=== PATIENT | female | born 1965 | race African-American/Black ===

== ENCOUNTER 2020-04-28 11:14 | Emergency (ER) | payer SELFPAY ==
[~2020-04-28] VITALS: Ht 172.7 cm; Wt 153.2 kg
[2020-04-28] MEDS ORDERED: IBUPROFEN 600MG TABLET PO STA (12:42)
[2020-04-28] MEDS ORDERED: AMLODIPINE 5MG TABLET PO ONE (12:45)
[2020-04-28 13:53] LABS: BASOPHILS % 0.9 % (0.0-2.0); EOSINOPHILS % 2.4 % (0.0-5.0); HEMATOCRIT. 43.3 % (36.0-48.0); LYMPHOCYTES % 23.5 % (20.0-50.0); MEAN CORPUSCULAR HEMOGLOBIN 25.4 pg (28.0-32.0); MEAN CORPUSCULAR VOLUME 78.8 fL (81.0-99.0); MEAN PLATELET VOLUME 9.3 fl (7.4-10.4); MONOCYTES % 4.9 % (2.0-8.0); NEUTROPHILS % 68.3 % (40.0-76.0); PLATELET 271 x1000/uL (130-400); RED BLOOD CELL COUNT 5.49 mill/uL (4.2-5.4); RED CELL DISTRIBUTION WIDTH 15.3 % (11.6-14.6)
[2020-04-28 13:58] LABS: CHLORIDE 101 mEq/L (98-107)
[2020-04-28 15:15] VITALS: BP 170/80
== END 2020-04-28 15:17 | disposition home or self-care (01) ==
LOC: ER 11:14
DX: I16.0 Hypertensive urgency (principal); E11.65 Type 2 diabetes mellitus with hyperglycemia; M25.512 Pain in left shoulder; M79.661 Pain in right lower leg; Z86.718 Personal history of other venous thrombosis and embolism; Z88.0 Allergy status to penicillin; Z98.890 Other specified postprocedural states
CPT/HCPCS: 36415; 71045; 73030; 80053; 85025; 93005; 93971; 99285

== ENCOUNTER 2023-03-30 22:50 | Inpatient (IN) | payer SELFPAY ==
[~2023-03-30] VITALS: Ht 170.2 cm; Wt 161.1 kg
[2023-03-30 23:34] LABS: BASOPHILS % 0.4 % (0.0-2.0); DIFFERENTIAL COMMENT 0; EOSINOPHILS % 3.3 % (0.0-5.0); HEMATOCRIT. 28.6 % (36.0-48.0); HEMOGLOBIN. 9.1 g/dL (12.0-16.0); LYMPHOCYTES % 30.5 % (20.0-50.0); MEAN CORPUSCULAR HEMOGLOBIN 23.2 pg (28.0-32.0); MEAN CORPUSCULAR HGB CONC 31.7 g/dL (31.0-37.0); MEAN CORPUSCULAR VOLUME 73.1 fL (81.0-99.0); MEAN PLATELET VOLUME 8.3 fl (7.4-10.4); MONOCYTES % 5.9 % (2.0-8.0); NEUTROPHILS % 59.9 % (40.0-76.0); PLATELET 438 x1000/uL (130-400); RED BLOOD CELL COUNT 3.91 mill/uL (4.2-5.4); RED CELL DISTRIBUTION WIDTH 17.6 % (11.6-14.6); WHITE BLOOD COUNT 10.7 x1000/uL (4.5-11.0)
[2023-03-30 23:38] LABS: INR 0.9; PARTIAL THROMBOPLASTIN TIME 29.8 sec (23.4-31.0)
[2023-03-30 23:49] LABS: ALANINE AMINOTRANSFERASE < 7 IU/L (10-49); ALBUMIN 3.5 g/dL (3.2-4.8); ASPARTATE AMINOTRANSFERASE 9 IU/L (<34); BILIRUBIN TOTAL 0.2 mg/dL (0.1-1.0); CALCIUM 8.4 mg/dL (8.7-10.4); CARBON DIOXIDE 24 mEq/L (21-32); CHLORIDE 108 mEq/L (98-107); CREATININE 1.2 mg/dL (0.6-1.0); GLUCOSE 184 mg/dL (70-105); POTASSIUM 3.7 mEq/L (3.5-5.1); PROTEIN TOTAL 6.7 g/dL (6.0-8.3); SODIUM 140 mEq/L (136-145); TROPONIN I HIGH SENSITIVITY 5 ng/L (3.0-34); UREA NITROGEN BLOOD 17 mg/dL (9-23)
[2023-03-31] MEDS ORDERED: SODIUM CHLORIDE 0.9% 1,000 ML IV ONE (00:30)
[2023-03-31 02:07] LABS: CLARITY URINE CLOUDY (CLEAR); COLOR URINE YELLOW (YELLOW); SPECIFIC GRAVITY URINE 1.013 (1.005-1.030)
[2023-03-31 02:08] LABS: GLUCOSE URINE NEGATIVE (NEGATIVE); KETONES URINE NEGATIVE (NEGATIVE); LEUKOCYTE ESTERASE URINE NEGATIVE (NEGATIVE); NITRITE URINE NEGATIVE (NEGATIVE); OCCULT BLOOD URINE 2+ (NEGATIVE); PROTEIN URINE 3+ (NEGATIVE); UROBILINOGEN URINE 0.2 E.U./dL (0.2-1.0)
[2023-03-31 02:21] LABS: BACTERIA URINE 1+; RBC URINE 0-2 /hpf (0-2)
[2023-03-31 02:22] LABS: SQUAMOUS EPITHELIAL CELL URINE 1+ /lpf (RARE/1+)
[2023-03-31] MEDS ORDERED: ENOXAPARIN 80MG/0.8ML SYR SUBCUT ONE (05:30)
[2023-03-31] MEDS ORDERED: HYDRALAZINE 20MG/ML VIAL IV ONE (05:30)
[2023-03-31] MEDS ORDERED: IOHEXOL-350 100 ML BOTTLE ONE (07:02)
[2023-03-31 09:00] VITALS: BP 118/74; PULSE 92; RESP 18; TEMP 97.5
[2023-03-31 09:36] VITALS: BP 118/74; PULSE 92; RESP 18; TEMP 97.5
[2023-03-31 12:00] VITALS: BP 184/84; PULSE 95; RESP 18; TEMP 97.1
[2023-03-31] MEDS ORDERED: ONDANSETRON HCL 4MG/2ML INJ IV PRN (12:00)
[2023-03-31] MEDS ORDERED: ACETAMINOPHEN 325MG TABLET PO PRN (12:00)
[2023-03-31] MEDS ORDERED: DOCUSATE SODIUM 100MG CAPSULE PO PRN (12:00)
[2023-03-31] MEDS ORDERED: IPRATROPIUM/ALBUTEROL 0.5-3(2.5)MG/3ML NEB HHN PRN (12:00)
[2023-03-31] MEDS ORDERED: GUAIFENESIN 200MG/10ML SUGAR FREE UDC PO PRN (12:00)
[2023-03-31] MEDS: AMLODIPINE 10MG TABLET PO SCH (12:44)
[2023-03-31] MEDS: TRAMADOL 50MG TABLET PO PRN ×2 (14:43→21:18)
[2023-03-31 16:00] VITALS: BP 178/84; PULSE 96; RESP 18; TEMP 98.1
[2023-03-31 20:00] VITALS: BP 173/86; PULSE 102; RESP 17; TEMP 98.8
[2023-03-31] MEDS: CLONIDINE 0.1MG TABLET PO PRN (21:19)
[2023-04-01] VITALS: BP 157/77; PULSE 101; RESP 18; TEMP 99.9
[2023-04-01 04:00] VITALS: BP 147/72; PULSE 90; RESP 18; TEMP 99.8
[2023-04-01 04:13] VITALS: BP 147/72; RESP 18; TEMP 99.8
[2023-04-01 08:00] VITALS: BP 170/83; PULSE 84; RESP 20; TEMP 98
[2023-04-01 08:14] LABS: BASOPHILS % 0.4 % (0.0-2.0); DIFFERENTIAL COMMENT 0; EOSINOPHILS % 4.7 % (0.0-5.0); HEMATOCRIT. 26.7 % (36.0-48.0); HEMOGLOBIN. 8.5 g/dL (12.0-16.0); LYMPHOCYTES % 30.4 % (20.0-50.0); MEAN CORPUSCULAR HGB CONC 31.8 g/dL (31.0-37.0); MEAN CORPUSCULAR VOLUME 72.3 fL (81.0-99.0); MEAN PLATELET VOLUME 8.6 fl (7.4-10.4); MONOCYTES % 6.1 % (2.0-8.0); NEUTROPHILS % 58.4 % (40.0-76.0); PLATELET 372 x1000/uL (130-400); RED BLOOD CELL COUNT 3.69 mill/uL (4.2-5.4); RED CELL DISTRIBUTION WIDTH 17.6 % (11.6-14.6); WHITE BLOOD COUNT 9.4 x1000/uL (4.5-11.0)
[2023-04-01] MEDS ORDERED: ASPIRIN 81MG EC TABLET PO SCH (09:00)
[2023-04-01] MEDS: AMLODIPINE 10MG TABLET PO SCH (09:02)
[2023-04-01 09:27] LABS: ALANINE AMINOTRANSFERASE < 7 IU/L (10-49); ALBUMIN 3.3 g/dL (3.2-4.8); ASPARTATE AMINOTRANSFERASE 9 IU/L (<34); BILIRUBIN TOTAL < 0.2 mg/dL (0.1-1.0); CALCIUM 8.8 mg/dL (8.7-10.4); CARBON DIOXIDE 24 mEq/L (21-32); CHLORIDE 110 mEq/L (98-107); CHOLESTEROL 133 mg/dL (<200); CREATININE 1.1 mg/dL (0.6-1.0); GLUCOSE 183 mg/dL (70-105); HDL CHOLESTEROL 36 mg/dL (>65); LDL CHOLESTEROL 107 mg/dL (5-100); POTASSIUM 4.7 mEq/L (3.5-5.1); PROTEIN TOTAL 5.8 g/dL (6.0-8.3); SODIUM 142 mEq/L (136-145); TRIGLYCERIDE 114 mg/dL (0-150); UREA NITROGEN BLOOD 15 mg/dL (9-23)
[2023-04-01 09:52] VITALS: RESP 18
[2023-04-01] MEDS: TRAMADOL 50MG TABLET PO PRN (09:52)
[2023-04-01] MEDS ORDERED: FUROSEMIDE 20MG TABLET PO SCH (11:15)
[2023-04-01 12:27] VITALS: BP 170/83; PULSE 69; TEMP 97.3; O2SAT 96
[2023-04-01] MEDS: CLONIDINE 0.1MG TABLET PO PRN (12:57)
[2023-04-01] MEDS ORDERED: HYDRALAZINE HCL 10MG TABLET PO SCH (14:00)
[2023-04-01] MEDS ORDERED: ATORVASTATIN CALCIUM 10MG TABLET PO SCH (21:00)
== END 2023-04-01 15:12 | disposition home or self-care (01) | DRG 194 ==
LOC: ER 22:50 → 8WST 03-31 01:40 → EDBEDREQ 03-31 01:47
PROVIDERS: ADMIT Hospitalist; ATTEND Hospitalist
DX: I11.0 Hypertensive heart disease with heart failure (principal); E11.9 Type 2 diabetes mellitus without complications; I50.41 Acute combined systolic (congestive) and diastolic (congestive) heart failure; E78.5 Hyperlipidemia, unspecified; N84.2 Polyp of vagina; N93.9 Abnormal uterine and vaginal bleeding, unspecified; Z79.4 Long term (current) use of insulin
CPT/HCPCS: 36415; 71045; 71275; 80053; 80061; 81003; 82962; 83880; 84484; 85025; 85379; 93005; 93306; 93970; 99285; J0360; J1650; Q9967

== ENCOUNTER 2023-04-03 16:25 | Inpatient (IN) | payer SELFPAY ==
[~2023-04-03] VITALS: Ht 170.2 cm; Wt 155.6 kg
[2023-04-03] MEDS ORDERED: ACETAMINOPHEN 325MG TABLET PO STA (17:33)
[2023-04-03] MEDS ORDERED: KETOROLAC 30MG/ML VIAL IV ONE (17:45)
[2023-04-03 18:39] LABS: ALANINE AMINOTRANSFERASE 9 IU/L (10-49); ALBUMIN 3.9 g/dL (3.2-4.8); ASPARTATE AMINOTRANSFERASE 18 IU/L (<34); BILIRUBIN TOTAL 0.2 mg/dL (0.1-1.0); CALCIUM 9.5 mg/dL (8.7-10.4); CARBON DIOXIDE 26 mEq/L (21-32); CHLORIDE 103 mEq/L (98-107); GLUCOSE 226 mg/dL (70-105); POTASSIUM 4.6 mEq/L (3.5-5.1); SODIUM 138 mEq/L (136-145); TROPONIN I HIGH SENSITIVITY 6 ng/L (3.0-34); UREA NITROGEN BLOOD 15 mg/dL (9-23)
[2023-04-03 18:43] LABS: HEMATOCRIT. 33.1 % (36.0-48.0); MEAN CORPUSCULAR HEMOGLOBIN 22.2 pg (28.0-32.0); MEAN CORPUSCULAR HGB CONC 30.2 g/dL (31.0-37.0); MEAN CORPUSCULAR VOLUME 73.5 fL (81.0-99.0); MEAN PLATELET VOLUME 8.9 fl (7.4-10.4); PLATELET 396 x1000/uL (130-400); RED CELL DISTRIBUTION WIDTH 17.6 % (11.6-14.6); WHITE BLOOD COUNT 12.5 x1000/uL (4.5-11.0)
[2023-04-03 18:48] LABS: CREATININE 1.5 mg/dL (0.6-1.0)
[2023-04-03 18:55] LABS: DIFFERENTIAL COMMENT 1
[2023-04-03 19:05] LABS: CLARITY URINE CLOUDY (CLEAR); COLOR URINE YELLOW (YELLOW); GLUCOSE URINE TRACE (NEGATIVE); KETONES URINE NEGATIVE (NEGATIVE); LEUKOCYTE ESTERASE URINE TRACE (NEGATIVE); NITRITE URINE NEGATIVE (NEGATIVE); OCCULT BLOOD URINE 2+ (NEGATIVE); PH URINE 8.5 (4.5-8.0); PROTEIN URINE 3+ (NEGATIVE); SPECIFIC GRAVITY URINE 1.019 (1.005-1.030); UROBILINOGEN URINE 0.2 E.U./dL (0.2-1.0)
[2023-04-03 19:10] LABS: INR 0.9; PROTHROMBIN TIME 10.2 sec (9.6-11.0)
[2023-04-03] MEDS ORDERED: CEFTRIAXONE 1GM PREMIX 50 ML IV ONE (19:15)
[2023-04-03 19:49] LABS: BACTERIA URINE 2+; SQUAMOUS EPITHELIAL CELL URINE 2+ /lpf (RARE/1+); WBC URINE 0-2 /hpf (0-2)
[2023-04-03] MEDS ORDERED: AZITHROMYCIN 500 MG in DEXT 5% WATER 250 ML IV STA (20:28)
[2023-04-03] MEDS ORDERED: AZITHROMYCIN 500MG/250ML 250 ML IV NR (20:45)
[2023-04-03 21:30] LABS: PLATELET ESTIMATE NORMAL
[2023-04-03 21:31] LABS: ANISOCYTOSIS 1+; HYPOCHROMASIA 1+; MICROCYTOSIS 2+
[2023-04-04] MEDS ORDERED: SODIUM CHLORIDE 0.9% 1,000 ML IV SCH
[2023-04-04] MEDS ORDERED: MAGNESIUM/ALUMINUM HYDROXIDE/SIMETHICONE 30ML UDC PO PRN
[2023-04-04] MEDS ORDERED: ONDANSETRON HCL 4MG/2ML INJ IV PRN
[2023-04-04] MEDS ORDERED: ACETAMINOPHEN 325MG TABLET PO PRN
[2023-04-04] MEDS ORDERED: DOCUSATE SODIUM 100MG CAPSULE PO PRN
[2023-04-04] MEDS ORDERED: IPRATROPIUM/ALBUTEROL 0.5-3(2.5)MG/3ML NEB HHN PRN
[2023-04-04] MEDS ORDERED: LEVOFLOXACIN 500MG PREMIX 100 ML IV SCH (01:00)
[2023-04-04] MEDS: GUAIFENESIN 200MG/10ML SUGAR FREE UDC PO PRN ×2 (01:03→08:16)
[2023-04-04] MEDS: CLONIDINE 0.1MG TABLET PO PRN (01:30)
[2023-04-04] MEDS ORDERED: LEVOFLOXACIN 500MG PREMIX 100 ML IV NR (06:00)
[2023-04-04 07:57] LABS: HEMATOCRIT 31.4 % (36.0-48.0); HEMOGLOBIN 9.8 g/dL (12.0-16.0); MEAN CORPUSCULAR HEMOGLOBIN 22.3 pg (28.0-32.0); MEAN CORPUSCULAR HGB CONC 31.2 g/dL (31.0-37.0); MEAN CORPUSCULAR VOLUME 71.5 fL (81.0-99.0); PLATELET 344 x1000/uL (130-400); RED BLOOD CELL COUNT 4.39 mill/uL (4.2-5.4); RED CELL DISTRIBUTION WIDTH 17.4 % (11.6-14.6); WHITE BLOOD COUNT 9.4 x1000/uL (4.5-11.0)
[2023-04-04 08:14] LABS: ALANINE AMINOTRANSFERASE 9 IU/L (10-49); ALBUMIN 3.7 g/dL (3.2-4.8); ASPARTATE AMINOTRANSFERASE 19 IU/L (<34); BILIRUBIN TOTAL 0.2 mg/dL (0.1-1.0); CARBON DIOXIDE 28 mEq/L (21-32); CHLORIDE 105 mEq/L (98-107); CREATININE 1.4 mg/dL (0.6-1.0); GLUCOSE 142 mg/dL (70-105); IRON 26 ug/dL (50-170); POTASSIUM 4.4 mEq/L (3.5-5.1); PROTEIN TOTAL 7.3 g/dL (6.0-8.3); SODIUM 140 mEq/L (136-145); TOTAL IRON BINDING CAPACITY 668 ug/dl (250-425); UREA NITROGEN BLOOD 22 mg/dL (9-23)
[2023-04-04] MEDS: HYDRALAZINE HCL 10MG TABLET PO SCH ×3 (08:15→21:11)
[2023-04-04 08:20] LABS: BG BASE EXCESS 1.6 mmol/L (-2.0-2.0); BG CARBOXYHEMOGLOBIN 0.8 % (0.5-1.5); BG DEOXYHEMOGLOBIN 10.4 % (0.0-5.0); BG FRACTION INSPIRED OXYGEN 21; BG OXYGEN SATURATION 89.5 % (92.0-98.5); BG OXYHEMOGLOBIN 88.8 % (94.0-97.0); BG PH 7.472 (7.350-7.450); BG SAMPLE SITE RIGHT RADIAL; BG TOTAL HEMOGLOBIN 10.8 g/dL (12.0-18.0); BG VENT MODE ROOM AIR
[2023-04-04 08:45] VITALS: BP 164/88; PULSE 110; RESP 20; TEMP 99
[2023-04-04] MEDS: IPRATROPIUM/ALBUTEROL 0.5-3(2.5)MG/3ML NEB HHN SCH (10:00)
[2023-04-04] MEDS: ENOXAPARIN 40MG/0.4ML SYR SUBCUT SCH (10:32)
[2023-04-04] MEDS: AMLODIPINE 10MG TABLET PO SCH (10:33)
[2023-04-04] MEDS: ACETAMINOPHEN 325MG TABLET PO PRN ×3 (10:36→19:16)
[2023-04-04] MEDS ORDERED: DEXTROSE 50% WATER 50ML SYRINGE IV PRN (11:00)
[2023-04-04] MEDS: BLOOD SUGAR DIAGNOSTIC STRIP TEST SCH ×3 (11:54→20:43)
[2023-04-04 12:00] VITALS: BP 142/63; PULSE 102; RESP 21; TEMP 98.9
[2023-04-04] MEDS ORDERED: METF-414 MT (12:05)
[2023-04-04] MEDS: INSULIN LISPRO 100 UNITS/ML SUBCUT SCH ×3 (12:34→21:11)
[2023-04-04 12:45] LABS: FERRITIN 25 ng/mL (10-291); FOLIC ACID (FOLATE) SERUM 12.88 ng/mL (>5.38); VITAMIN B12 SERUM 1194 pg/mL (211-911)
[2023-04-04 16:00] VITALS: BP 148/68; PULSE 115; RESP 21; TEMP 98.4
[2023-04-04] MEDS: FUROSEMIDE 40MG/4ML VIAL IVP SCH (16:24)
[2023-04-04 20:00] VITALS: BP 157/81; PULSE 106; RESP 20; TEMP 98.2
[2023-04-04] MEDS: ATORVASTATIN CALCIUM 10MG TABLET PO SCH (21:11)
[2023-04-04] MEDS: FAMOTIDINE 20MG TABLET PO SCH (21:12)
[2023-04-05] VITALS (10 sets, daily range): BP systolic 114–167; BP diastolic 54–86; PULSE 71–103; RESP 16–20; TEMP 97.2–99; O2SAT 98–99
[2023-04-05] MEDS: CLONIDINE 0.1MG TABLET PO PRN (00:52)
[2023-04-05] MEDS: LEVOFLOXACIN 250MG PREMIX 50 ML IV SCH (05:13)
[2023-04-05] MEDS: HYDRALAZINE HCL 10MG TABLET PO SCH ×3 (05:24→22:13)
[2023-04-05] MEDS: ACETAMINOPHEN 325MG TABLET PO PRN ×3 (05:26→18:55)
[2023-04-05] MEDS: BLOOD SUGAR DIAGNOSTIC STRIP TEST SCH ×4 (06:03→21:07)
[2023-04-05] MEDS: INSULIN LISPRO 100 UNITS/ML SUBCUT SCH ×5 (06:06→22:25)
[2023-04-05] MEDS: FUROSEMIDE 40MG/4ML VIAL IVP SCH (09:03)
[2023-04-05] MEDS: AMLODIPINE 10MG TABLET PO SCH (09:04)
[2023-04-05] MEDS: ENOXAPARIN 40MG/0.4ML SYR SUBCUT SCH (09:04)
[2023-04-05] MEDS ORDERED: KETOROLAC 10MG TABLET PO PRN (14:15)
[2023-04-05] MEDS: IPRATROPIUM/ALBUTEROL 0.5-3(2.5)MG/3ML NEB HHN SCH ×2 (15:30→21:30)
[2023-04-05] MEDS ORDERED: LACTULOSE 20G/30ML UDC PO NR (16:00)
[2023-04-05 18:05] LABS: HEMOGLOBIN 9.6 g/dL (12.0-16.0); MEAN CORPUSCULAR HEMOGLOBIN 22.9 pg (28.0-32.0); MEAN CORPUSCULAR HGB CONC 32.1 g/dL (31.0-37.0); MEAN CORPUSCULAR VOLUME 71.4 fL (81.0-99.0); PLATELET 287 x1000/uL (130-400); RED CELL DISTRIBUTION WIDTH 17.4 % (11.6-14.6)
[2023-04-05 18:35] LABS: ALANINE AMINOTRANSFERASE 10 IU/L (10-49); ALBUMIN 3.5 g/dL (3.2-4.8); ASPARTATE AMINOTRANSFERASE 26 IU/L (<34); BILIRUBIN TOTAL < 0.2 mg/dL (0.1-1.0); CALCIUM 8.5 mg/dL (8.7-10.4); CARBON DIOXIDE 27 mEq/L (21-32); CHLORIDE 103 mEq/L (98-107); CREATININE 1.5 mg/dL (0.6-1.0); GLUCOSE 185 mg/dL (70-105); POTASSIUM 3.6 mEq/L (3.5-5.1); PROTEIN TOTAL 6.8 g/dL (6.0-8.3); SODIUM 139 mEq/L (136-145); UREA NITROGEN BLOOD 26 mg/dL (9-23)
[2023-04-05] MEDS ORDERED: INSULIN GLARGINE 100 UNITS/ML SUBCUT SCH (22:00)
[2023-04-05] MEDS: ATORVASTATIN CALCIUM 10MG TABLET PO SCH (22:12)
[2023-04-05] MEDS: FAMOTIDINE 20MG TABLET PO SCH (22:15)
[2023-04-06] VITALS (8 sets, daily range): BP systolic 128–151; BP diastolic 60–77; PULSE 78–95; RESP 18–20; TEMP 96.3–98; O2SAT 95–99
[2023-04-06] MEDS: IPRATROPIUM/ALBUTEROL 0.5-3(2.5)MG/3ML NEB HHN SCH ×4 (01:26→14:00)
[2023-04-06] MEDS: ACETAMINOPHEN 325MG TABLET PO PRN ×3 (04:46→12:19)
[2023-04-06] MEDS: LEVOFLOXACIN 250MG PREMIX 50 ML IV SCH (05:08)
[2023-04-06] MEDS: BLOOD SUGAR DIAGNOSTIC STRIP TEST SCH ×3 (06:33→17:11)
[2023-04-06] MEDS: HYDRALAZINE HCL 10MG TABLET PO SCH ×2 (06:33→13:04)
[2023-04-06] MEDS: FUROSEMIDE 40MG/4ML VIAL IVP SCH (08:28)
[2023-04-06] MEDS: ENOXAPARIN 40MG/0.4ML SYR SUBCUT SCH (08:28)
[2023-04-06] MEDS: AMLODIPINE 10MG TABLET PO SCH (08:29)
[2023-04-06] MEDS: INSULIN LISPRO 100 UNITS/ML SUBCUT SCH ×6 (08:30→17:12)
[2023-04-06] MEDS ORDERED: AMLO10TA80 PO (10:01)
[2023-04-06] MEDS ORDERED: ALBU6.7H15 INH (10:01)
[2023-04-06] MEDS ORDERED: ATOR10TA PO (10:01)
[2023-04-06] MEDS ORDERED: GABAPENTIN 100MG CAPSULE PO SCH (14:00)
== END 2023-04-06 18:04 | disposition home or self-care (01) | DRG 720 ==
LOC: ER 16:25 → EDBEDREQTM 21:22 → EDBEDREQ 21:22 → MICUSO 23:22 → 8WST 04-04 09:05
PROVIDERS: ADMIT Internal Medicine; ATTEND Internal Medicine
DX: A41.9 Sepsis, unspecified organism (principal); J96.01 Acute respiratory failure with hypoxia; N17.9 Acute kidney failure, unspecified; J18.9 Pneumonia, unspecified organism; Z68.43 Body mass index [BMI] 50.0-59.9, adult; D50.9 Iron deficiency anemia, unspecified; Z20.822 Contact with and (suspected) exposure to COVID-19; I10 Essential (primary) hypertension; E11.9 Type 2 diabetes mellitus without complications; E66.01 Morbid (severe) obesity due to excess calories; E78.5 Hyperlipidemia, unspecified; I16.1 Hypertensive emergency; N39.0 Urinary tract infection, site not specified; Z88.0 Allergy status to penicillin
CPT/HCPCS: 36415; 36600; 70551; 71045; 80053; 81003; 82306; 82375; 82607; 82728; 82746; 82805; 82962; 83036; 83540; 83550; 83605; 83880; 84145; 84484; 85025; 85027; 87070; 87426; 87449; 87804; 93005; 94640; 94667; 97161; 99291; C9803; J0456; J0696; J1650; J1815; J1885; J1940; J1956; J7060

== ENCOUNTER 2024-05-31 14:19 | Inpatient (IN) | payer OTHER ==
[~2024-05-31] VITALS: Ht 167.6 cm; Wt 189.6 kg
[~2024-05-31 14:19] MED LIST: ALBU6.7H15 INH; AMLO10TA80 PO; ATOR10TA PO; CARV3.1242 PO; FURO-152 PO; GABA-529 PO; LOSA50TA41 PO; METF-414 MT
[2024-05-31] MEDS: LEVOFLOXACIN 750MG PREMIX 150 ML IV ONE (15:30)
[2024-05-31 16:47] LABS: BASOPHILS % 0.4 % (0.0-2.0); DIFFERENTIAL COMMENT 0; EOSINOPHILS % 3.7 % (0.0-5.0); HEMATOCRIT. 30.2 % (36.0-48.0); HEMOGLOBIN. 9.5 g/dL (12.0-16.0); LYMPHOCYTES % 15.7 % (20.0-50.0); MEAN CORPUSCULAR HEMOGLOBIN 24.9 pg (28.0-32.0); MEAN CORPUSCULAR HGB CONC 31.6 g/dL (31.0-37.0); MEAN CORPUSCULAR VOLUME 78.8 fL (81.0-99.0); MEAN PLATELET VOLUME 8.6 fl (7.4-10.4); MONOCYTES % 5.8 % (2.0-8.0); NEUTROPHILS % 74.4 % (40.0-76.0); PLATELET 388 x1000/uL (130-400); RED BLOOD CELL COUNT 3.83 mill/uL (4.2-5.4); RED CELL DISTRIBUTION WIDTH 16.1 % (11.6-14.6); WHITE BLOOD COUNT 11.4 x1000/uL (4.5-11.0)
[2024-05-31 16:54] LABS: POTASSIUM 3.7 mEq/L (3.5-5.1)
[2024-05-31 16:55] LABS: CALCIUM 9.6 mg/dL (8.7-10.4)
[2024-05-31 16:56] LABS: INR 0.9; PROTHROMBIN TIME 10.5 sec (9.6-11.0)
[2024-05-31 17:00] LABS: CREATININE 1.2 mg/dL (0.6-1.0)
[2024-05-31] MEDS: SODIUM CHLORIDE 0.9% 1,000 ML IV ONE (18:02)
[2024-05-31] MEDS: CEPHALEXIN 250MG CAPSULE PO ONE (19:15)
[2024-05-31] MEDS: SULFAMETHOXAZOLE/TRIMETHOPRIM 800/160MG TABLET PO ONE (19:16)
[2024-05-31] MEDS ORDERED: IBUPROFEN 800MG TABLET PO ONE (20:45)
[2024-05-31] MEDS: GABAPENTIN 300MG CAPSULE PO STA (21:26)
[2024-05-31] MEDS: ONDANSETRON 4MG ODT PO NR (21:42)
[2024-05-31] MEDS: IBUPROFEN 800MG TABLET PO NR (21:42)
[2024-06-01] VITALS: BP 129/45; PULSE 81; RESP 18; TEMP 36.5; O2SAT 96
[2024-06-01] MEDS ORDERED: DEXTROSE 50% WATER 50ML SYRINGE IV PRN
[2024-06-01] MEDS ORDERED: ZOLPIDEM TARTRATE 5MG TABLET PO PRN
[2024-06-01 00:05] VITALS: BP 129/45; PULSE 81; RESP 18; TEMP 36.5
[2024-06-01] MEDS ORDERED: MORPHINE SULFATE 2 MG/ML INJ (NOT FOR IM USE) IV PRN ×2 (00:45)
[2024-06-01] MEDS: SODIUM CHLORIDE 0.9% 1,000 ML IV SCH (00:50)
[2024-06-01] MEDS: AZTREONAM 2 GM in DEXT 5% WATER 100 ML IV SCH (02:59)
[2024-06-01] MEDS: VANCOMYCIN 1G PREMIX 200 ML IV SCH (03:58)
[2024-06-01] MEDS ORDERED: VANCOMYCIN 1G PREMIX 200 ML IV SCH (04:30)
[2024-06-01] MEDS: BLOOD SUGAR DIAGNOSTIC STRIP TEST SCH (07:11)
[2024-06-01] MEDS: INSULIN LISPRO 100 UNITS/ML SUBCUT SCH (07:50)
[2024-06-01 08:00] VITALS: BP 108/47; PULSE 73; RESP 20; TEMP 36.6; O2SAT 99
[2024-06-01] MEDS ORDERED: INFLUENZA VACCINE 05/PF 0.5 ML SYRINGE IM ONE (10:00)
[2024-06-01] MEDS: PANTOPRAZOLE SODIUM 40 MG/VIAL IV SCH (10:01)
[2024-06-01] MEDS: ENOXAPARIN 40MG/0.4ML SYR SUBCUT SCH (10:02)
[2024-06-01] MEDS: VANCOMYCIN 1.25GM PMX (XELLIA) 250 ML IV SCH (11:45)
[2024-06-01 12:00] VITALS: BP 146/63; PULSE 76; RESP 20; TEMP 36.1; O2SAT 98
[2024-06-01] MEDS ORDERED: NALOXONE HCL 0.4MG/ML VIAL IV PRN (12:15)
[2024-06-01 16:00] VITALS: BP 169/69; PULSE 79; RESP 20; TEMP 36.3; O2SAT 97
[2024-06-01] MEDS: METRONIDAZOLE 500MG TABLET PO SCH (18:10)
[2024-06-01] MEDS: CEFTRIAXONE 2GM/50ML 50 ML IV SCH (18:10)
[2024-06-01 20:00] VITALS: BP 140/65; PULSE 65; RESP 18; TEMP 36.6; O2SAT 98
[2024-06-01] MEDS: ACETAMINOPHEN 325MG TABLET PO PRN (23:34)
[2024-06-02] VITALS: BP 131/45; PULSE 83; RESP 18; TEMP 36.6; O2SAT 96
[2024-06-02 04:00] VITALS: BP 125/42; PULSE 80; RESP 18; TEMP 36.6; O2SAT 96
[2024-06-02 08:00] VITALS: BP 100/61; PULSE 71; RESP 19; TEMP 36.4; O2SAT 100
[2024-06-02 08:39] LABS: BASOPHILS % 0.5 % (0.0-2.0); DIFFERENTIAL COMMENT 0; EOSINOPHILS % 4.9 % (0.0-5.0); HEMATOCRIT. 27.9 % (36.0-48.0); HEMOGLOBIN. 8.7 g/dL (12.0-16.0); LYMPHOCYTES % 20.1 % (20.0-50.0); MEAN CORPUSCULAR HEMOGLOBIN 24.8 pg (28.0-32.0); MEAN CORPUSCULAR HGB CONC 31.3 g/dL (31.0-37.0); MEAN CORPUSCULAR VOLUME 79.3 fL (81.0-99.0); MEAN PLATELET VOLUME 8.5 fl (7.4-10.4); NEUTROPHILS % 68.5 % (40.0-76.0); PLATELET 367 x1000/uL (130-400); RED BLOOD CELL COUNT 3.52 mill/uL (4.2-5.4); WHITE BLOOD COUNT 9.9 x1000/uL (4.5-11.0)
[2024-06-02 08:40] LABS: CARBON DIOXIDE 22 mEq/L (21-32); CHLORIDE 111 mEq/L (98-107); POTASSIUM 3.5 mEq/L (3.5-5.1); SODIUM 143 mEq/L (136-145)
[2024-06-02 08:41] LABS: CALCIUM 8.6 mg/dL (8.7-10.4)
[2024-06-02 08:46] LABS: CREATININE 1.1 mg/dL (0.6-1.0); UREA NITROGEN BLOOD 31 mg/dL (9-23)
[2024-06-02 11:43] LABS: GLUCOSE 57 mg/dL (70-105)
[2024-06-02 11:57] LABS: BG BASE EXCESS -3.8 mmol/L (-2.0-3.0); BG CARBOXYHEMOGLOBIN 0.8 % (0.5-1.5); BG DEOXYHEMOGLOBIN 3.2 % (0.0-5.0); BG FRACTION INSPIRED OXYGEN 21; BG HCO3 ACT 21.1 mmol/L (21.0-28.0); BG METHEMOGLOBIN 0.3 % (0.5-1.5); BG OXYGEN SATURATION 96.8 % (94.0-98.0); BG OXYHEMOGLOBIN 95.7 % (94.0-98.0); BG PCO2 37.4 mmHg (32.0-45.0); BG PH 7.369 (7.350-7.450); BG PO2 89.3 mmHg (83.0-108.0); BG SAMPLE SITE RIGHT BRACHIAL; BG TOTAL HEMOGLOBIN 8.2 g/dL (12.0-16.0); BG VENT MODE ROOM AIR
[2024-06-02 12:00] VITALS: BP 160/65; PULSE 76; RESP 20; TEMP 36.6; O2SAT 100
[2024-06-02] MEDS: HYDROCODONE/ACETAMINOPHEN 5/325MG TABLET PO PRN (14:49)
[2024-06-02 16:00] VITALS: BP 179/73; PULSE 76; RESP 20; TEMP 36.6; O2SAT 99
[2024-06-02] MEDS: CLONIDINE 0.1MG TABLET PO PRN (16:34)
[2024-06-02] MEDS: ONDANSETRON HCL 4MG/2ML INJ IV PRN (18:02)
[2024-06-02 20:00] VITALS: BP 141/57; PULSE 73; RESP 19; TEMP 36.8; O2SAT 98
[2024-06-03] VITALS: BP 118/47; PULSE 70; RESP 19; TEMP 36.7; O2SAT 96
[2024-06-03] MEDS ORDERED: POLYMYXIN B SULFATE 500000 UNITS/VIAL ONE (06:40)
[2024-06-03] MEDS ORDERED: LIDOCAINE HCL 1% 10 MG/ML 10ML VIAL ONE ×2 (06:40→08:01)
[2024-06-03] MEDS ORDERED: BUPIVACAINE HCL/PF 0.5% (5MG/ML) 10ML ONE (06:41)
[2024-06-03] MEDS ORDERED: ONDANSETRON HCL 4MG/2ML INJ ONE (07:59)
[2024-06-03] MEDS ORDERED: PROPOFOL 200MG/20ML VIAL IV ONE (07:59)
[2024-06-03] MEDS ORDERED: DEXAMETHASONE 4MG/ML 1ML VIAL ONE (07:59)
[2024-06-03] MEDS ORDERED: FENTANYL CITRATE/PF 50MCG/ML 2ML VIAL ONE (07:59)
[2024-06-03 08:00] VITALS: BP 134/65; PULSE 66; RESP 20; TEMP 36.8; O2SAT 94
[2024-06-03] MEDS ORDERED: MIDAZOLAM HCL 2 MG/2 ML VIAL ONE (08:03)
[2024-06-03] MEDS ORDERED: FAMOTIDINE 20MG/2ML VIAL IV ONE (08:11)
[2024-06-03 08:27] LABS: BASOPHILS % 0.2 % (0.0-2.0); DIFFERENTIAL COMMENT 0; EOSINOPHILS % 5.4 % (0.0-5.0); HEMATOCRIT. 26.3 % (36.0-48.0); HEMOGLOBIN. 8.3 g/dL (12.0-16.0); LYMPHOCYTES % 29.2 % (20.0-50.0); MEAN CORPUSCULAR HEMOGLOBIN 25.2 pg (28.0-32.0); MEAN CORPUSCULAR HGB CONC 31.7 g/dL (31.0-37.0); MEAN CORPUSCULAR VOLUME 79.4 fL (81.0-99.0); MEAN PLATELET VOLUME 8.1 fl (7.4-10.4); MONOCYTES % 6.4 % (2.0-8.0); NEUTROPHILS % 58.8 % (40.0-76.0); PLATELET 369 x1000/uL (130-400); RED BLOOD CELL COUNT 3.31 mill/uL (4.2-5.4)
[2024-06-03 08:43] LABS: CHLORIDE 114 mEq/L (98-107); POTASSIUM 3.3 mEq/L (3.5-5.1); SODIUM 145 mEq/L (136-145)
[2024-06-03 08:44] LABS: CARBON DIOXIDE 22 mEq/L (21-32)
[2024-06-03 08:45] LABS: CALCIUM 8.7 mg/dL (8.7-10.4)
[2024-06-03 08:50] LABS: GLUCOSE 82 mg/dL (70-105); UREA NITROGEN BLOOD 24 mg/dL (9-23)
[2024-06-03] MEDS ORDERED: ESMOLOL HCL 10MG/ML 10ML VIAL IV ONE (08:58)
[2024-06-03] MEDS ORDERED: HYDROMORPHONE HCL/PF 1MG/ML INJ IV PRN ×2 (09:15→10:45)
[2024-06-03] MEDS ORDERED: ONDANSETRON HCL 4MG/2ML INJ IV PRN (09:15)
[2024-06-03] MEDS ORDERED: FENTANYL CITRATE/PF 50MCG/ML 2ML VIAL IV PRN (10:00)
[2024-06-03 12:00] VITALS: BP 105/68; PULSE 68; RESP 20; TEMP 36.9; O2SAT 99
[2024-06-03 16:00] VITALS: BP 168/64; PULSE 66; RESP 19; TEMP 36.3; O2SAT 98
[2024-06-03 20:00] VITALS: BP 162/62; PULSE 66; RESP 20; TEMP 35.6; O2SAT 95
[2024-06-03] MEDS: VANCOMYCIN 750MG/150ML (BAXTER) IV SCH (21:33)
[2024-06-04] VITALS: BP 140/53; PULSE 71; RESP 20; TEMP 35.9; O2SAT 97
[2024-06-04 08:00] VITALS: BP 156/63; PULSE 73; RESP 18; TEMP 36.1; O2SAT 100
[2024-06-04 10:02] LABS: BASOPHILS % 0.5 % (0.0-2.0); DIFFERENTIAL COMMENT 0; EOSINOPHILS % 5.2 % (0.0-5.0); HEMATOCRIT. 25.9 % (36.0-48.0); HEMOGLOBIN. 8.3 g/dL (12.0-16.0); LYMPHOCYTES % 25.8 % (20.0-50.0); MEAN CORPUSCULAR HEMOGLOBIN 25.5 pg (28.0-32.0); MEAN CORPUSCULAR HGB CONC 32.1 g/dL (31.0-37.0); MEAN CORPUSCULAR VOLUME 79.5 fL (81.0-99.0); MEAN PLATELET VOLUME 8.2 fl (7.4-10.4); MONOCYTES % 5.1 % (2.0-8.0); NEUTROPHILS % 63.4 % (40.0-76.0); PLATELET 371 x1000/uL (130-400); RED BLOOD CELL COUNT 3.25 mill/uL (4.2-5.4); WHITE BLOOD COUNT 9.1 x1000/uL (4.5-11.0)
[2024-06-04 10:16] LABS: CHLORIDE 115 mEq/L (98-107); POTASSIUM 3.4 mEq/L (3.5-5.1); SODIUM 145 mEq/L (136-145)
[2024-06-04 10:17] LABS: CARBON DIOXIDE 21 mEq/L (21-32)
[2024-06-04 10:18] LABS: CALCIUM 8.6 mg/dL (8.7-10.4)
[2024-06-04 10:22] LABS: CREATININE 0.8 mg/dL (0.6-1.0); GLUCOSE 80 mg/dL (70-105); UREA NITROGEN BLOOD 16 mg/dL (9-23)
[2024-06-04] MEDS: FUROSEMIDE 40MG TABLET PO SCH (11:04)
[2024-06-04 12:00] VITALS: BP 148/64; PULSE 66; RESP 18; TEMP 36.2; O2SAT 100
[2024-06-04] MEDS: POTASSIUM CHLORIDE 20MEQ TABLET SR PO NR (14:40)
[2024-06-04 16:00] VITALS: BP 131/65; PULSE 66; RESP 18; TEMP 36.4; O2SAT 98
[2024-06-04 20:00] VITALS: BP 124/79; PULSE 63; RESP 17; TEMP 36.8; O2SAT 99
[2024-06-05 04:00] VITALS: BP 177/72; PULSE 73; RESP 20; TEMP 36.6; O2SAT 96
[2024-06-05 07:19] LABS: BASOPHILS % 0.5 % (0.0-2.0); DIFFERENTIAL COMMENT 0; EOSINOPHILS % 4.8 % (0.0-5.0); HEMATOCRIT. 25.7 % (36.0-48.0); HEMOGLOBIN. 8.3 g/dL (12.0-16.0); MEAN CORPUSCULAR HEMOGLOBIN 25.3 pg (28.0-32.0); MEAN CORPUSCULAR HGB CONC 32.1 g/dL (31.0-37.0); MEAN CORPUSCULAR VOLUME 78.7 fL (81.0-99.0); NEUTROPHILS % 55.7 % (40.0-76.0); PLATELET 388 x1000/uL (130-400); RED BLOOD CELL COUNT 3.26 mill/uL (4.2-5.4); WHITE BLOOD COUNT 9.3 x1000/uL (4.5-11.0)
[2024-06-05 07:21] LABS: CHLORIDE 116 mEq/L (98-107); POTASSIUM 3.6 mEq/L (3.5-5.1); SODIUM 146 mEq/L (136-145)
[2024-06-05 07:22] LABS: CALCIUM 8.6 mg/dL (8.7-10.4); CARBON DIOXIDE 21 mEq/L (21-32)
[2024-06-05 07:27] LABS: CREATININE 0.8 mg/dL (0.6-1.0); GLUCOSE 69 mg/dL (70-105); UREA NITROGEN BLOOD 11 mg/dL (9-23)
[2024-06-05 08:00] VITALS: BP 159/59; PULSE 68; RESP 18; TEMP 36.3; O2SAT 95
[2024-06-05] MEDS ORDERED: METR-167 MT (08:40)
[2024-06-05] MEDS ORDERED: HYDR-4001 MT (08:40)
[2024-06-05] MEDS ORDERED: FAMO-135 MT (08:40)
[2024-06-05] MEDS ORDERED: LEVO750T68 MT (08:40)
[2024-06-05] MEDS: FAMOTIDINE 20MG/2ML VIAL IV SCH (08:58)
[2024-06-05 12:00] VITALS: BP 182/69; PULSE 68; RESP 19; TEMP 36.4; O2SAT 97
[2024-06-05] MEDS ORDERED: HYDRALAZINE 20MG/ML VIAL IM ONE (14:00)
[2024-06-05 16:00] VITALS: BP 201/75; PULSE 60; RESP 19; TEMP 36.3; O2SAT 97
[2024-06-05] MEDS: AMLODIPINE 10MG TABLET PO SCH (17:21)
[2024-06-05 20:00] VITALS: BP 185/61; PULSE 64; RESP 17; TEMP 36.4; O2SAT 99
[2024-06-05] MEDS: MINOXIDIL 2.5MG TABLET PO NR (21:19)
[2024-06-06] VITALS: BP 145/48; PULSE 77; RESP 18; TEMP 37.1; O2SAT 100
[2024-06-06 04:00] VITALS: BP 149/50; PULSE 79; RESP 16; TEMP 36.3; O2SAT 96
[2024-06-06 08:00] VITALS: BP 159/66; PULSE 77; RESP 19; TEMP 36.3; O2SAT 99
[2024-06-06] MEDS: CARVEDILOL 3.125 MG TABLET PO SCH (08:59)
[2024-06-06] MEDS: HYDRALAZINE HCL 25MG TABLET PO SCH (09:11)
[2024-06-06] MEDS: FAMOTIDINE 20MG TABLET PO SCH (09:52)
[2024-06-06] MEDS: ONDANSETRON 4MG ODT PO PRN (09:53)
[2024-06-06] MEDS ORDERED: CEFD300C3 MT (11:25)
[2024-06-06 12:00] VITALS: BP 165/65; PULSE 79; RESP 18; TEMP 36.2; O2SAT 96
[2024-06-06] MEDS: LOSARTAN 50 MG TABLET PO SCH (13:20)
[2024-06-06] MEDS: HYDRALAZINE HCL 50MG TABLET PO SCH (13:20)
[2024-06-06] MEDS ORDERED: HYDR50TA39 PO (13:31)
[2024-06-06] MEDS ORDERED: CLON0.1T MT (13:31)
[2024-06-06] MEDS: VANCOMYCIN 750MG PREMIX 150 ML IV SCH (15:00)
[2024-06-06 15:31] VITALS: BP 138/47; PULSE 84; TEMP 98.2; O2SAT 98
[2024-06-06 16:00] VITALS: BP 153/57; PULSE 86; RESP 18; TEMP 36.5; O2SAT 96
[2024-06-06] MEDS: HYDROCODONE/ACETAMINOPHEN 5/325MG TABLET PO PRN (22:19)
[2024-06-07] VITALS: BP 147/60; PULSE 85; RESP 19; TEMP 36.4; O2SAT 98
[2024-06-07 00:03] LABS: TROPONIN I HIGH SENSITIVITY 29 ng/L (3.0-34)
[2024-06-07 04:00] VITALS: BP 148/58; PULSE 82; RESP 17; TEMP 36.9; O2SAT 100
[2024-06-07 08:00] VITALS: BP 149/58; PULSE 80; RESP 18; TEMP 36.9; O2SAT 97
[2024-06-07] MEDS: CLONIDINE 0.2MG TABLET PO PRN (11:39)
[2024-06-07 12:00] VITALS: BP 176/65; PULSE 83; RESP 18; TEMP 36.7; O2SAT 98
[2024-06-07] MEDS ORDERED: ONDA4TAB50 MT (13:12)
[2024-06-07 16:00] VITALS: BP 129/48; PULSE 74; RESP 18; TEMP 36.8; O2SAT 98
[2024-06-07 20:00] VITALS: BP 151/68; PULSE 85; RESP 18; TEMP 36.6; O2SAT 98
[2024-06-08] VITALS: BP 136/55; PULSE 76; RESP 16; TEMP 36.3; O2SAT 96
[2024-06-08 04:00] VITALS: BP 153/57; PULSE 78; RESP 19; TEMP 36.1; O2SAT 96
[2024-06-08 08:00] VITALS: BP 168/63; PULSE 79; RESP 20; TEMP 36.2; O2SAT 98
[2024-06-08 12:00] VITALS: BP 153/56; PULSE 75; RESP 20; TEMP 36.2; O2SAT 98
[2024-06-08 16:00] VITALS: BP 161/61; PULSE 91; RESP 20; TEMP 36.9; O2SAT 98
[2024-06-08] MEDS: CEFTRIAXONE 2GM/50ML 50 ML IV SCH (20:00)
[2024-06-08] MEDS: VANCOMYCIN 1.5GM/250ML 250 ML IV NR (22:49)
[2024-06-08] MEDS: METRONIDAZOLE 500MG TABLET PO SCH (22:49)
[2024-06-09 08:00] VITALS: BP 142/50; PULSE 80; RESP 18; TEMP 36.6; O2SAT 95
[2024-06-09] MEDS ORDERED: VANCOMYCIN 1GM/200ML PMX (BAXTER) IV SCH (08:00)
[2024-06-09 11:00] VITALS: BP 173/64; PULSE 89; RESP 20
[2024-06-09] MEDS ORDERED: VANCOMYCIN 750MG PREMIX 150 ML IV SCH (21:00)
== END 2024-06-09 13:08 | disposition home health service (06) | DRG 746 ==
LOC: ER 14:19 → EDBEDREQ 19:07 → EDBEDREQTM 19:07 → 6EST 23:49
PROVIDERS: ADMIT Internal Medicine; ATTEND Internal Medicine
PROC: 0U9M0ZZ Drainage of Vulva, Open Approach (ICD-10-PCS; principal; 2024-06-03)
DX: N76.4 Abscess of vulva (principal); I13.0 Hypertensive heart and chronic kidney disease with heart failure and stage 1 through stage 4 chronic kidney disease, or unspecified chronic kidney disease; I69.354 Hemiplegia and hemiparesis following cerebral infarction affecting left non-dominant side; Z68.44 Body mass index [BMI] 60.0-69.9, adult; N76.2 Acute vulvitis; D50.9 Iron deficiency anemia, unspecified; I50.9 Heart failure, unspecified; N18.9 Chronic kidney disease, unspecified; B96.4 Proteus (mirabilis) (morganii) as the cause of diseases classified elsewhere; N93.9 Abnormal uterine and vaginal bleeding, unspecified; E78.5 Hyperlipidemia, unspecified; E11.22 Type 2 diabetes mellitus with diabetic chronic kidney disease; E66.01 Morbid (severe) obesity due to excess calories; Z74.01 Bed confinement status; Z88.0 Allergy status to penicillin; Z88.5 Allergy status to narcotic agent
CPT/HCPCS: 36415; 36600; 71045; 72192; 80048; 80202; 82375; 82805; 82962; 83036; 83605; 84145; 84484; 85025; 87070; 87075; 87077; 87106; 87186; 88304; 93005; 93970; 99285; A4606; A4663; C1893; J0665; J0696; J1100; J1650; J2003; J2250; J2405; J2470; J2704; J3010; J3370; J3490; J7030; J7060; Q0162

== ENCOUNTER 2025-02-09 11:45 | Inpatient (IN) | payer OTHER ==
[~2025-02-09] VITALS: Ht 170.2 cm; Wt 119.3 kg
[~2025-02-09 11:45] MED LIST changes: +CEFD300C3 MT; +CLON0.1T MT; +FAMO-135 MT; +HYDR-4001 MT; +HYDR50TA39 PO; +METR-167 MT; +ONDA4TAB50 MT
[2025-02-09 11:49] VITALS: O2SAT 98
[2025-02-09 12:47] LABS: BASOPHILS % 0.6 % (0.0-2.0); EOSINOPHILS % 0.2 % (0.0-5.0); HEMATOCRIT. 31.4 % (36.0-48.0); HEMOGLOBIN. 10.1 g/dL (12.0-16.0); LYMPHOCYTES % 14.7 % (20.0-50.0); MEAN PLATELET VOLUME 8.4 fl (7.4-10.4); MONOCYTES % 7.6 % (2.0-8.0); NEUTROPHILS % 76.9 % (40.0-76.0); PLATELET 413 x1000/uL (130-400); RED BLOOD CELL COUNT 4.07 mill/uL (4.2-5.4); RED CELL DISTRIBUTION WIDTH 20.3 % (11.6-14.6)
[2025-02-09 13:04] LABS: CREATININE 0.7 mg/dL (0.6-1.0); UREA NITROGEN BLOOD 26 mg/dL (9-23)
[2025-02-09 13:06] LABS: ASPARTATE AMINOTRANSFERASE 13 IU/L (<34); BILIRUBIN DIRECT < 0.1 mg/dL (<=3.0); BILIRUBIN TOTAL < 0.2 mg/dL (0.1-1.0)
[2025-02-09 13:07] LABS: PROTEIN TOTAL 7.3 g/dL (6.0-8.3)
[2025-02-09] MEDS ORDERED: HYDROMORPHONE HCL/PF 2MG/ML INJ IV ONE (14:30)
[2025-02-09] MEDS: HYDROMORPHONE HCL/PF 1MG/ML INJ IV ONE (14:42)
[2025-02-09] MEDS: IOHEXOL-300 100 ML BOTTLE ONE (14:48)
[2025-02-09] MEDS: INSULIN LISPRO 100 UNITS/ML SUBCUT SCH (17:50)
[2025-02-09] MEDS ORDERED: DEXTROSE 50% WATER 50ML SYRINGE IV PRN (18:00)
[2025-02-09] MEDS ORDERED: ACETAMINOPHEN 325MG TABLET PO PRN (18:00)
[2025-02-09] MEDS: BLOOD SUGAR DIAGNOSTIC STRIP TEST SCH (18:00)
[2025-02-09 18:13] VITALS: BP 149/74; PULSE 98; RESP 19; TEMP 36.5292
[2025-02-09] MEDS ORDERED: NALOXONE HCL 0.4MG/ML VIAL IV PRN (18:15)
[2025-02-09] MEDS: DEXT 5%/0.45% NACL 1000ML 1,000 ML IV SCH (19:12)
[2025-02-09 20:00] VITALS: BP 160/89; PULSE 99; RESP 18; TEMP 36.6; O2SAT 95
[2025-02-09] MEDS: HYDROMORPHONE HCL/PF 1MG/ML INJ IV PRN (20:52)
[2025-02-10] VITALS: BP 166/78; PULSE 96; RESP 18; TEMP 36.6; O2SAT 100
[2025-02-10 04:00] VITALS: BP 166/56; PULSE 57; RESP 18; TEMP 36.6; O2SAT 97
[2025-02-10 04:00] LABS: CLARITY URINE CLEAR (CLEAR); COLOR URINE YELLOW (YELLOW); GLUCOSE URINE NEGATIVE (NEGATIVE); KETONES URINE NEGATIVE (NEGATIVE); LEUKOCYTE ESTERASE URINE NEGATIVE (NEGATIVE); NITRITE URINE NEGATIVE (NEGATIVE); OCCULT BLOOD URINE NEGATIVE (NEGATIVE); PH URINE 5.5 (4.5-8.0); PROTEIN URINE 1+ (NEGATIVE); SPECIFIC GRAVITY URINE 1.017 (1.005-1.030); UROBILINOGEN URINE 0.2 E.U./dL (0.2-1.0)
[2025-02-10 04:05] LABS: RBC URINE NONE SEEN /hpf (0-2); WBC URINE 0-2 /hpf (0-2)
[2025-02-10 04:06] LABS: BACTERIA URINE TRACE; SQUAMOUS EPITHELIAL CELL URINE FEW /lpf (RARE/1+)
[2025-02-10 08:00] VITALS: BP 174/91; PULSE 99; RESP 19; TEMP 36.3; O2SAT 95
[2025-02-10 08:04] LABS: BASOPHILS % 0.4 % (0.0-2.0); EOSINOPHILS % 0.3 % (0.0-5.0); HEMATOCRIT. 29.2 % (36.0-48.0); HEMOGLOBIN. 9.3 g/dL (12.0-16.0); LYMPHOCYTES % 14.4 % (20.0-50.0); MEAN PLATELET VOLUME 8.3 fl (7.4-10.4); MONOCYTES % 11.0 % (2.0-8.0); NEUTROPHILS % 73.9 % (40.0-76.0); PLATELET 399 x1000/uL (130-400); RED BLOOD CELL COUNT 3.78 mill/uL (4.2-5.4); RED CELL DISTRIBUTION WIDTH 20.2 % (11.6-14.6)
[2025-02-10 08:15] LABS: CREATININE 0.7 mg/dL (0.6-1.0); UREA NITROGEN BLOOD 32 mg/dL (9-23)
[2025-02-10 08:17] LABS: ASPARTATE AMINOTRANSFERASE 11 IU/L (<34); BILIRUBIN TOTAL 0.2 mg/dL (0.1-1.0)
[2025-02-10 08:18] LABS: PROTEIN TOTAL 6.9 g/dL (6.0-8.3)
[2025-02-10] MEDS ORDERED: IPRATROPIUM/ALBUTEROL 0.5-3(2.5)MG/3ML NEB HHN PRN (10:00)
[2025-02-10] MEDS ORDERED: ACETAMINOPHEN 325MG TABLET PO PRN (10:00)
[2025-02-10] MEDS ORDERED: ONDANSETRON HCL 4MG/2ML INJ IV PRN (10:00)
[2025-02-10] MEDS ORDERED: NALOXONE HCL 0.4MG/ML VIAL IV PRN (10:15)
[2025-02-10] MEDS: DEXTROSE 5% WATER 1,000 ML IV SCH (10:33)
[2025-02-10] MEDS: PANTOPRAZOLE SODIUM 40 MG/VIAL IV SCH (10:34)
[2025-02-10] MEDS: POTASSIUM CHLORIDE 20MEQ TABLET SR PO SCH (10:34)
[2025-02-10] MEDS: ENOXAPARIN 40MG/0.4ML SYR SUBCUT SCH (10:35)
[2025-02-10] MEDS: AMLODIPINE 10MG TABLET PO SCH (10:35)
[2025-02-10 12:00] VITALS: BP 139/70; PULSE 89; RESP 19; TEMP 36.3; O2SAT 94
[2025-02-10] MEDS: HYDROCODONE/ACETAMINOPHEN 5/325MG TABLET PO PRN (12:30)
[2025-02-10 12:57] LABS: CREATINE KINASE MB FRACTION < 0.5 ng/mL (0.5-3.6)
[2025-02-10 15:15] LABS: TROPONIN I HIGH SENSITIVITY 19 ng/L (3.0-34)
[2025-02-10 16:00] VITALS: BP 161/74; PULSE 89; RESP 18; TEMP 36.2; O2SAT 95
[2025-02-10] MEDS: HYDRALAZINE HCL 25MG TABLET PO SCH (17:05)
[2025-02-10 17:19] LABS: *AMPHETAMINES SCREEN URINE NEGATIVE (NEGATIVE); *BARBITURATES SCREEN URINE NEGATIVE (NEGATIVE); *BENZODIAZEPINES SCREEN URINE NEGATIVE (NEGATIVE); *COCAINE SCREEN URINE NEGATIVE (NEGATIVE); CANNABINOID URINE SCREEN NEGATIVE (NEGATIVE); ECSTASY MDMA SCREEN URINE NEGATIVE (NEGATIVE); METHADONE URINE SCREEN NEGATIVE (NEGATIVE); OPIATES URINE SCREEN PRESUMPTIVE POSITIVE (NEGATIVE); PHENCYCLIDINE URINE SCREEN NEGATIVE (NEGATIVE)
[2025-02-10 20:00] VITALS: BP 153/60; PULSE 84; RESP 18; TEMP 36.7; O2SAT 97
[2025-02-11] VITALS: BP 128/60; PULSE 97; RESP 18; TEMP 36.5; O2SAT 97
[2025-02-11 00:22] LABS: TROPONIN I HIGH SENSITIVITY 13 ng/L (3.0-34)
[2025-02-11 04:00] VITALS: BP 140/63; PULSE 98; RESP 19; TEMP 37.2; O2SAT 98
[2025-02-11] MEDS: DOCUSATE SODIUM 100MG CAPSULE PO PRN (06:27)
[2025-02-11 08:00] VITALS: BP 138/63; PULSE 100; RESP 20; TEMP 36.6; O2SAT 97
[2025-02-11] MEDS: ASPIRIN 81MG TABLET PO SCH (08:46)
[2025-02-11 12:00] VITALS: BP 158/68; PULSE 94; RESP 18; TEMP 36.7; O2SAT 97
[2025-02-11] MEDS ORDERED: SENNOSIDES/DOCUSATE SOD 8.6/50MG TABLET PO PRN (14:45)
[2025-02-11] MEDS: POLYETHYLENE GLYCOL 3350 (17GM) 1 DOSE PACK PO SCH (15:33)
[2025-02-11 16:00] VITALS: BP 145/61; PULSE 93; RESP 19; TEMP 36.4; O2SAT 100
[2025-02-11 17:28] LABS: BASOPHILS % 0.5 % (0.0-2.0); EOSINOPHILS % 3.2 % (0.0-5.0); HEMATOCRIT. 26.4 % (36.0-48.0); HEMOGLOBIN. 8.5 g/dL (12.0-16.0); LYMPHOCYTES % 21.0 % (20.0-50.0); MEAN PLATELET VOLUME 8.7 fl (7.4-10.4); MONOCYTES % 7.0 % (2.0-8.0); NEUTROPHILS % 68.3 % (40.0-76.0); PLATELET 358 x1000/uL (130-400); RED BLOOD CELL COUNT 3.47 mill/uL (4.2-5.4); RED CELL DISTRIBUTION WIDTH 20.0 % (11.6-14.6)
[2025-02-11 17:41] LABS: CREATININE 0.6 mg/dL (0.6-1.0); UREA NITROGEN BLOOD 25 mg/dL (9-23)
[2025-02-11 17:50] LABS: FOLIC ACID (FOLATE) SERUM 3.35 ng/mL (>5.38); VITAMIN B12 SERUM 1708 pg/mL (211-911)
[2025-02-11 20:00] VITALS: BP 149/67; PULSE 69; RESP 18; TEMP 36.2; O2SAT 98
[2025-02-12 04:00] VITALS: BP 145/61; PULSE 89; RESP 17; TEMP 36.2; O2SAT 96
[2025-02-12 06:50] LABS: BASOPHILS % 0.3 % (0.0-2.0); EOSINOPHILS % 4.7 % (0.0-5.0); HEMATOCRIT. 25.7 % (36.0-48.0); HEMOGLOBIN. 8.5 g/dL (12.0-16.0); LYMPHOCYTES % 27.7 % (20.0-50.0); MEAN PLATELET VOLUME 8.6 fl (7.4-10.4); MONOCYTES % 7.4 % (2.0-8.0); NEUTROPHILS % 59.9 % (40.0-76.0); PLATELET 374 x1000/uL (130-400); RED BLOOD CELL COUNT 3.37 mill/uL (4.2-5.4); RED CELL DISTRIBUTION WIDTH 20.1 % (11.6-14.6)
[2025-02-12 07:01] LABS: CREATININE 0.6 mg/dL (0.6-1.0)
[2025-02-12 07:02] LABS: UREA NITROGEN BLOOD 22 mg/dL (9-23)
[2025-02-12 07:03] LABS: ASPARTATE AMINOTRANSFERASE 12 IU/L (<34)
[2025-02-12 07:04] LABS: BILIRUBIN TOTAL 0.3 mg/dL (0.1-1.0); PROTEIN TOTAL 6.1 g/dL (6.0-8.3)
[2025-02-12 08:00] VITALS: BP 154/61; PULSE 87; RESP 18; TEMP 36.1; O2SAT 96
[2025-02-12] MEDS: POTASSIUM CHLORIDE 20MEQ TABLET SR PO NR (09:59)
[2025-02-12 12:00] VITALS: BP 169/83; PULSE 95; RESP 18; TEMP 36.6; O2SAT 97
[2025-02-12 16:00] VITALS: BP 162/76; PULSE 95; RESP 18; TEMP 36.9; O2SAT 98
[2025-02-12 20:00] VITALS: BP 148/69; PULSE 84; RESP 16; TEMP 36.3; O2SAT 100
[2025-02-13] VITALS: BP 126/60; PULSE 89; RESP 17; TEMP 36.1; O2SAT 98
[2025-02-13 04:00] VITALS: BP 153/73; PULSE 92; RESP 19; TEMP 36.7; O2SAT 97
[2025-02-13] MEDS: ACETAMINOPHEN 325MG TABLET PO PRN (06:33)
[2025-02-13 08:00] VITALS: BP 36/65; PULSE 88; RESP 18; TEMP 36.8; O2SAT 96
[2025-02-13 12:00] VITALS: BP 161/76; PULSE 89; RESP 18; TEMP 36.3; O2SAT 97
[2025-02-13 16:00] VITALS: BP 153/67; PULSE 93; RESP 18; TEMP 36.7; O2SAT 97
[2025-02-13 20:00] VITALS: BP 153/71; PULSE 88; RESP 18; TEMP 36.5; O2SAT 97
[2025-02-14] VITALS: BP 147/61; PULSE 94; RESP 18; TEMP 37.1; O2SAT 99
[2025-02-14 08:00] VITALS: BP 134/56; PULSE 90; TEMP 36.4
[2025-02-14 12:00] VITALS: BP 128/61; PULSE 93; RESP 18; TEMP 36.8; O2SAT 98
[2025-02-14 16:00] VITALS: BP 132/70; PULSE 99; RESP 19; TEMP 36.8; O2SAT 96
[2025-02-14 20:00] VITALS: BP 141/62; PULSE 91; RESP 18; TEMP 36.7; O2SAT 99
[2025-02-15] MEDS: MAGNESIUM/ALUMINUM HYDROXIDE/SIMETHICONE 30ML UDC PO PRN (01:49)
[2025-02-15] MEDS: PANTOPRAZOLE 40MG DR TABLET PO SCH (06:20)
[2025-02-15 08:00] VITALS: BP 133/59; PULSE 90; RESP 20; TEMP 35.9; O2SAT 97
[2025-02-15 12:00] VITALS: BP_SYST 143; BP_SYST 146; BP_DIAS 60; BP_DIAS 67; PULSE 87; PULSE 93; RESP 20; TEMP 36.3; O2SAT 96; O2SAT 97
[2025-02-15 16:00] VITALS: BP 146/67; PULSE 87; RESP 20; TEMP 36.3; O2SAT 97
[2025-02-15 20:00] VITALS: BP 123/63; PULSE 86; RESP 16; TEMP 37.1; O2SAT 95
[2025-02-16 02:38] LABS: CLARITY URINE TURBID (CLEAR); COLOR URINE YELLOW (YELLOW)
[2025-02-16 02:39] LABS: PH URINE 6.5 (4.5-8.0); PROTEIN URINE 1+ (NEGATIVE); SPECIFIC GRAVITY URINE 1.006 (1.005-1.030)
[2025-02-16 02:40] LABS: GLUCOSE URINE NEGATIVE (NEGATIVE); KETONES URINE NEGATIVE (NEGATIVE)
[2025-02-16 02:41] LABS: NITRITE URINE POSITIVE (NEGATIVE); OCCULT BLOOD URINE 1+ (NEGATIVE); UROBILINOGEN URINE 0.2 E.U./dL (0.2-1.0)
[2025-02-16 02:43] LABS: LEUKOCYTE ESTERASE URINE 3+ (NEGATIVE)
[2025-02-16 03:00] LABS: WBC URINE TNTC /hpf (0-2)
[2025-02-16 03:01] LABS: BACTERIA URINE 4+; SQUAMOUS EPITHELIAL CELL URINE FEW /lpf (RARE/1+)
[2025-02-16 06:26] LABS: BASOPHILS % 1.1 % (0.0-2.0); EOSINOPHILS % 6.6 % (0.0-5.0); HEMATOCRIT. 27.1 % (36.0-48.0); HEMOGLOBIN. 8.7 g/dL (12.0-16.0); LYMPHOCYTES % 40.1 % (20.0-50.0); MEAN PLATELET VOLUME 8.1 fl (7.4-10.4); MONOCYTES % 9.5 % (2.0-8.0); NEUTROPHILS % 42.7 % (40.0-76.0); PLATELET 409 x1000/uL (130-400); RED BLOOD CELL COUNT 3.56 mill/uL (4.2-5.4); RED CELL DISTRIBUTION WIDTH 20.1 % (11.6-14.6)
[2025-02-16 07:06] LABS: CREATININE 0.5 mg/dL (0.6-1.0); UREA NITROGEN BLOOD 10 mg/dL (9-23)
[2025-02-16 07:08] LABS: ASPARTATE AMINOTRANSFERASE 14 IU/L (<34); BILIRUBIN TOTAL < 0.2 mg/dL (0.1-1.0); PROTEIN TOTAL 5.7 g/dL (6.0-8.3)
[2025-02-16 08:00] VITALS: BP 120/51; PULSE 85; RESP 19; TEMP 36.2; O2SAT 95
[2025-02-16] MEDS: PHENAZOPYRIDINE HCL 100MG TABLET PO SCH (09:49)
[2025-02-16 12:00] VITALS: BP 144/64; PULSE 83; RESP 20; TEMP 36.3; O2SAT 95
[2025-02-16] MEDS: LEVOFLOXACIN 250MG TABLET PO SCH (12:07)
[2025-02-16 16:00] VITALS: BP 131/59; PULSE 86; RESP 20; TEMP 36.2; O2SAT 97
[2025-02-16 20:00] VITALS: BP 120/60; PULSE 87; RESP 20; TEMP 36.1; O2SAT 98
[2025-02-17] VITALS: BP 135/64; PULSE 92; RESP 20; TEMP 35.7; O2SAT 96
[2025-02-17 04:00] VITALS: BP 97/55; PULSE 90; RESP 20; TEMP 36.3; O2SAT 98
[2025-02-17 08:00] VITALS: BP 132/66; PULSE 88; RESP 20; TEMP 36.2; O2SAT 99
[2025-02-17 09:27] LABS: BASOPHILS % 0.9 % (0.0-2.0); EOSINOPHILS % 5.6 % (0.0-5.0); HEMATOCRIT. 27.8 % (36.0-48.0); HEMOGLOBIN. 8.9 g/dL (12.0-16.0); LYMPHOCYTES % 43.8 % (20.0-50.0); MEAN PLATELET VOLUME 7.9 fl (7.4-10.4); MONOCYTES % 9.6 % (2.0-8.0); NEUTROPHILS % 40.1 % (40.0-76.0); PLATELET 465 x1000/uL (130-400); RED BLOOD CELL COUNT 3.63 mill/uL (4.2-5.4); RED CELL DISTRIBUTION WIDTH 20.2 % (11.6-14.6)
[2025-02-17 09:47] LABS: CREATININE 0.6 mg/dL (0.6-1.0)
[2025-02-17 09:48] LABS: UREA NITROGEN BLOOD 7 mg/dL (9-23)
[2025-02-17 09:49] LABS: ASPARTATE AMINOTRANSFERASE 12 IU/L (<34)
[2025-02-17 09:50] LABS: BILIRUBIN TOTAL < 0.2 mg/dL (0.1-1.0); PROTEIN TOTAL 5.9 g/dL (6.0-8.3)
[2025-02-17 12:00] VITALS: BP 130/70; PULSE 80; RESP 18; TEMP 36.3; O2SAT 99
[2025-02-17] MEDS: ONDANSETRON HCL 4MG/2ML INJ IV PRN (13:44)
[2025-02-17 16:00] VITALS: BP 135/77; PULSE 78; RESP 20; TEMP 36.2; O2SAT 99
[2025-02-17 20:00] VITALS: BP 142/65; PULSE 91; RESP 16; TEMP 36.1; O2SAT 98
[2025-02-18] VITALS: BP 135/58; PULSE 83; RESP 17; TEMP 36.7; O2SAT 97
[2025-02-18 04:00] VITALS: BP 131/76; PULSE 81; RESP 17; TEMP 36.4; O2SAT 99
[2025-02-18 08:00] VITALS: BP 127/57; PULSE 85; RESP 19; TEMP 36.5; O2SAT 97
[2025-02-18 12:00] VITALS: BP 132/52; PULSE 93; RESP 19; TEMP 36.4; O2SAT 98
[2025-02-18 16:00] VITALS: BP 132/67; PULSE 87; RESP 19; TEMP 36.4; O2SAT 97
[2025-02-18 20:00] VITALS: BP 151/73; PULSE 90; RESP 18; TEMP 36.6; O2SAT 98
[2025-02-19 04:00] VITALS: BP 99/61; PULSE 80; RESP 18; TEMP 36.6; O2SAT 99
[2025-02-19 08:00] VITALS: BP 139/62; PULSE 88; RESP 18; TEMP 36.4; O2SAT 96
[2025-02-19 12:00] VITALS: BP 123/53; PULSE 88; RESP 18; TEMP 36.4; O2SAT 65
[2025-02-19 16:00] VITALS: BP 133/58; PULSE 88; RESP 18; TEMP 36.4; O2SAT 97
[2025-02-19 20:00] VITALS: BP 133/62; PULSE 82; RESP 18; TEMP 36.6
[2025-02-20] VITALS: BP 128/69; PULSE 76; RESP 18; TEMP 36.3
[2025-02-20 04:00] VITALS: BP 110/84; PULSE 18; RESP 18; TEMP 36.6; O2SAT 99
[2025-02-20 08:00] VITALS: BP 127/54; PULSE 85; RESP 19; TEMP 36.4; O2SAT 97
[2025-02-20 12:00] VITALS: BP 136/57; PULSE 88; RESP 18; TEMP 36.2; O2SAT 95
[2025-02-20 16:00] VITALS: BP 122/66; PULSE 87; RESP 18; TEMP 36.4; O2SAT 97
[2025-02-20 20:00] VITALS: BP 135/60; PULSE 86; RESP 18; TEMP 36.6; O2SAT 96
[2025-02-20] MEDS: GABAPENTIN 100MG CAPSULE PO SCH (21:22)
[2025-02-21] VITALS: BP 129/60; PULSE 81; RESP 18; TEMP 36.5; O2SAT 98
[2025-02-21 04:08] VITALS: BP 138/66; PULSE 78; RESP 18; TEMP 36.2; O2SAT 96
[2025-02-21 08:00] VITALS: BP 112/52; PULSE 78; RESP 18; TEMP 36.3; O2SAT 97
[2025-02-21] MEDS: LIDOCAINE 5% PATCH TOP SCH (11:00)
[2025-02-21 12:00] VITALS: BP 110/58; PULSE 76; RESP 18; TEMP 36.7; O2SAT 98
[2025-02-21 16:00] VITALS: BP 108/55; PULSE 74; RESP 18; TEMP 36.7; O2SAT 98
[2025-02-21 20:00] VITALS: BP 139/62; PULSE 92; RESP 20; TEMP 36.2; O2SAT 96
[2025-02-22] VITALS: BP 127/61; PULSE 85; RESP 20; TEMP 36.4; O2SAT 96
[2025-02-22 04:00] VITALS: BP 135/57; PULSE 79; RESP 20; TEMP 35.9; O2SAT 95
[2025-02-22 08:00] VITALS: BP 124/47; PULSE 83; RESP 18; TEMP 36; O2SAT 98
[2025-02-22 12:00] VITALS: BP 130/51; PULSE 83; RESP 18; TEMP 36.2; O2SAT 99
[2025-02-22 16:00] VITALS: BP 141/54; PULSE 86; RESP 18; TEMP 36.4; O2SAT 98
[2025-02-22 20:00] VITALS: BP 139/55; PULSE 74; RESP 20; TEMP 35.9; O2SAT 97
[2025-02-23 04:00] VITALS: BP 122/51; PULSE 72; RESP 20; TEMP 36.2; O2SAT 95
[2025-02-23 08:00] VITALS: BP 140/61; PULSE 78; RESP 18; TEMP 36.2; O2SAT 94
[2025-02-23 12:00] VITALS: BP 143/61; PULSE 76; RESP 18; TEMP 36.1; O2SAT 95
[2025-02-23 16:00] VITALS: BP 144/61; PULSE 77; RESP 18; TEMP 37.3; O2SAT 98
[2025-02-23 20:00] VITALS: BP 132/58; PULSE 81; RESP 18; TEMP 36.8; O2SAT 97
[2025-02-24] VITALS: BP 127/67; PULSE 84; RESP 19; TEMP 36.2; O2SAT 95
[2025-02-24 04:00] VITALS: BP 127/52; PULSE 79; RESP 19; TEMP 36.6; O2SAT 95
[2025-02-24 08:00] VITALS: BP 136/56; PULSE 72; RESP 17; TEMP 36.2; O2SAT 95
[2025-02-24 12:00] VITALS: BP 126/65; PULSE 90; RESP 18; TEMP 36.1; O2SAT 98
[2025-02-24 16:00] VITALS: BP 124/58; PULSE 76; RESP 18; TEMP 37.1; O2SAT 98
[2025-02-24 20:00] VITALS: BP 129/53; PULSE 85; RESP 19; TEMP 36.7; O2SAT 97
[2025-02-25] VITALS: BP 130/60; PULSE 80; RESP 18; TEMP 36.6; O2SAT 98
[2025-02-25 04:00] VITALS: BP 134/61; PULSE 82; RESP 19; TEMP 37.2; O2SAT 98
[2025-02-25 08:00] VITALS: BP 150/51; PULSE 79; RESP 18; TEMP 36.3; O2SAT 97
[2025-02-25 12:00] VITALS: BP 144/60; PULSE 79; RESP 19; TEMP 36.4; O2SAT 97
[2025-02-25] MEDS: GABAPENTIN 100MG CAPSULE PO SCH (12:41)
[2025-02-25] MEDS: NA PHOS,M-B/NA PHOS,DI-BA ENEMA 118ML PR ONE (12:42)
[2025-02-25 16:00] VITALS: BP 117/70; PULSE 79; RESP 18; TEMP 36.4; O2SAT 96
[2025-02-25 20:00] VITALS: BP 116/56; PULSE 83; RESP 19; TEMP 36.9; O2SAT 99
[2025-02-26] VITALS: BP 118/60; PULSE 82; RESP 18; TEMP 37.1; O2SAT 98
[2025-02-26 04:00] VITALS: BP 124/54; PULSE 75; RESP 19; TEMP 36.6; O2SAT 98
[2025-02-26 08:00] VITALS: BP 125/61; PULSE 77; RESP 18; TEMP 36.6; O2SAT 99
[2025-02-26 12:00] VITALS: BP 137/62; PULSE 80; RESP 18; TEMP 36.4; O2SAT 99
[2025-02-26 16:00] VITALS: BP 129/60; PULSE 78; RESP 18; TEMP 36.7; O2SAT 99
[2025-02-26 20:00] VITALS: BP 128/61; PULSE 78; RESP 18; TEMP 36.6; O2SAT 96
[2025-02-27] VITALS: BP 108/54; PULSE 81; RESP 18; TEMP 36.3; O2SAT 95
[2025-02-27 04:00] VITALS: BP 100/45; PULSE 82; RESP 18; TEMP 36.4; O2SAT 96
[2025-02-27 08:00] VITALS: BP 129/59; PULSE 74; RESP 19; TEMP 35.9; O2SAT 98
[2025-02-27] MEDS: GABAPENTIN 300MG CAPSULE PO SCH (08:57)
[2025-02-27 12:00] VITALS: BP 121/53; PULSE 71; RESP 17; TEMP 36.6; O2SAT 96
[2025-02-27 16:00] VITALS: BP 129/56; PULSE 72; RESP 18; TEMP 37.1; O2SAT 97
[2025-02-27 20:00] VITALS: BP 127/55; PULSE 76; RESP 19; TEMP 36.2; O2SAT 97
[2025-02-27] MEDS: BLOOD SUGAR DIAGNOSTIC STRIP TEST SCH (21:35)
[2025-02-28] VITALS: BP 114/43; PULSE 78; RESP 18; TEMP 36.2; O2SAT 96
[2025-02-28 04:00] VITALS: BP 118/52; PULSE 80; RESP 19; TEMP 36.4; O2SAT 97
[2025-02-28 08:00] VITALS: BP 148/52; PULSE 74; RESP 19; TEMP 36.3; O2SAT 98
[2025-02-28 12:00] VITALS: BP 116/51; PULSE 71; RESP 18; TEMP 36.3; O2SAT 97
[2025-02-28 16:00] VITALS: BP 111/60; PULSE 76; RESP 19; TEMP 36.4; O2SAT 97
[2025-02-28 20:00] VITALS: BP 143/49; PULSE 78; RESP 19; TEMP 36.3
[2025-03-01] VITALS: BP 137/34; PULSE 72; RESP 20; TEMP 36.2; O2SAT 99
[2025-03-01 04:00] VITALS: BP 125/47; PULSE 71; RESP 18; TEMP 36.4; O2SAT 99
[2025-03-01 08:00] VITALS: BP 135/64; PULSE 78; RESP 20; TEMP 35.9; O2SAT 99
[2025-03-01 12:00] VITALS: BP 128/62; PULSE 75; RESP 20; TEMP 36.3; O2SAT 97
[2025-03-01 16:00] VITALS: BP 136/63; PULSE 78; RESP 20; TEMP 36.4; O2SAT 97
[2025-03-01 20:00] VITALS: BP 130/58; PULSE 79; RESP 20; TEMP 36; O2SAT 96
[2025-03-02] VITALS: BP 120/53; PULSE 90; RESP 20; TEMP 36.2; O2SAT 95
[2025-03-02 04:00] VITALS: BP_SYST 112; BP_SYST 122; BP_DIAS 56; PULSE 86; RESP 20; TEMP 36.5; O2SAT 99
[2025-03-02 08:00] VITALS: BP 114/70; PULSE 82; RESP 16; TEMP 36.5; O2SAT 98
[2025-03-02 12:00] VITALS: BP 129/60; PULSE 76; RESP 18; TEMP 36.4; O2SAT 98
[2025-03-02 16:00] VITALS: BP 112/50; PULSE 79; RESP 17; TEMP 36.4; O2SAT 96
[2025-03-02 20:00] VITALS: BP 134/49; PULSE 83; RESP 20; TEMP 35.9; O2SAT 95
[2025-03-03] VITALS: BP 124/59; PULSE 77; RESP 20; TEMP 36.2; O2SAT 99
[2025-03-03 08:00] VITALS: BP 105/67; PULSE 82; RESP 16; TEMP 36.4; O2SAT 96
[2025-03-03 12:00] VITALS: BP 116/54; PULSE 78; RESP 17; TEMP 36.5; O2SAT 98
[2025-03-03 16:00] VITALS: BP 123/50; PULSE 96; RESP 18; TEMP 36.4; O2SAT 97
[2025-03-03 20:00] VITALS: BP 124/62; PULSE 81; RESP 19; TEMP 36.6; O2SAT 97
[2025-03-04] VITALS: BP 120/68; PULSE 80; RESP 18; TEMP 36.6; O2SAT 98
[2025-03-04 04:00] VITALS: BP 121/55; PULSE 76; RESP 18; TEMP 37.1; O2SAT 98
[2025-03-04 08:00] VITALS: BP 116/54; PULSE 78; RESP 18; TEMP 36.2; O2SAT 97
[2025-03-04 12:00] VITALS: BP 154/68; PULSE 77; RESP 20; TEMP 36.3; O2SAT 98
[2025-03-04 16:00] VITALS: BP 101/53; PULSE 79; RESP 20; TEMP 36.3; O2SAT 98
[2025-03-04 20:00] VITALS: BP 139/58; PULSE 82; RESP 19; TEMP 37; O2SAT 100
[2025-03-05] VITALS: BP 107/60; PULSE 78; RESP 17; TEMP 37.1; O2SAT 99
[2025-03-05 04:00] VITALS: BP 121/61; PULSE 81; RESP 20; TEMP 36.3; O2SAT 97
[2025-03-05 08:00] VITALS: BP 135/65; PULSE 86; RESP 18; TEMP 36.7; O2SAT 98
[2025-03-05 12:00] VITALS: BP 156/66; PULSE 82; RESP 18; TEMP 36.6; O2SAT 98
[2025-03-05] MEDS ORDERED: NALOXONE HCL 0.4MG/ML VIAL IV PRN (12:30)
[2025-03-05] MEDS: HYDROCODONE/ACETAMINOPHEN 5/325MG TABLET PO PRN (12:41)
[2025-03-05] MEDS: FUROSEMIDE 40MG TABLET PO SCH (13:19)
[2025-03-05] MEDS: NYSTATIN 100,000 UNITS/GM CREAM 15GM TOP SCH (14:45)
[2025-03-05 16:00] VITALS: BP 120/53; PULSE 82; RESP 18; TEMP 36.6; O2SAT 97
[2025-03-05 20:00] VITALS: BP 135/54; PULSE 85; RESP 16; TEMP 36.1; O2SAT 97
[2025-03-06] VITALS: BP_SYST 104; BP_SYST 116; BP_DIAS 38; BP_DIAS 51; PULSE 82; PULSE 83; RESP 18; RESP 19; TEMP 35.7; TEMP 37; O2SAT 100; O2SAT 95; O2SAT 97
[2025-03-06 04:00] VITALS: BP 126/54; PULSE 75; RESP 16; TEMP 36.1; O2SAT 96
[2025-03-06 06:50] LABS: CREATININE 0.7 mg/dL (0.6-1.0); UREA NITROGEN BLOOD 11 mg/dL (9-23)
[2025-03-06 06:51] LABS: BASOPHILS % 0.3 % (0.0-2.0); EOSINOPHILS % 6.8 % (0.0-5.0); HEMATOCRIT. 28.6 % (36.0-48.0); HEMOGLOBIN. 9.2 g/dL (12.0-16.0); LYMPHOCYTES % 49.1 % (20.0-50.0); MEAN PLATELET VOLUME 7.9 fl (7.4-10.4); MONOCYTES % 7.0 % (2.0-8.0); NEUTROPHILS % 36.8 % (40.0-76.0); PLATELET 428 x1000/uL (130-400); RED BLOOD CELL COUNT 3.63 mill/uL (4.2-5.4); RED CELL DISTRIBUTION WIDTH 21.4 % (11.6-14.6)
[2025-03-06 08:00] VITALS: BP 117/50; PULSE 83; RESP 18; TEMP 36.6; O2SAT 99
[2025-03-06 12:00] VITALS: BP 136/57; PULSE 73; RESP 18; TEMP 36.5; O2SAT 96
[2025-03-06 16:00] VITALS: BP 131/93; PULSE 80; RESP 15; TEMP 36.5; O2SAT 97
[2025-03-06 20:00] VITALS: BP 117/56; PULSE 82; RESP 18; TEMP 36.4; O2SAT 95
[2025-03-06 20:55] LABS: CLARITY URINE CLOUDY (CLEAR); COLOR URINE YELLOW (YELLOW); GLUCOSE URINE NEGATIVE (NEGATIVE); KETONES URINE NEGATIVE (NEGATIVE); LEUKOCYTE ESTERASE URINE 3+ (NEGATIVE); NITRITE URINE POSITIVE (NEGATIVE); OCCULT BLOOD URINE TRACE (NEGATIVE); PH URINE 8.0 (4.5-8.0); PROTEIN URINE TRACE (NEGATIVE); SPECIFIC GRAVITY URINE 1.007 (1.005-1.030); UROBILINOGEN URINE 0.2 E.U./dL (0.2-1.0)
[2025-03-06 21:04] LABS: BACTERIA URINE 2+; SQUAMOUS EPITHELIAL CELL URINE 1+ /lpf (RARE/1+)
[2025-03-07 04:00] VITALS: BP 122/54; PULSE 82; RESP 20; TEMP 35.6; O2SAT 97
[2025-03-07 08:00] VITALS: BP 111/50; PULSE 75; RESP 18; TEMP 36.7; O2SAT 96
[2025-03-07 12:00] VITALS: BP 130/51; PULSE 87; RESP 18; TEMP 36.5; O2SAT 97
[2025-03-07 16:00] VITALS: BP 127/56; PULSE 76; RESP 18; TEMP 36.3; O2SAT 100
[2025-03-07] MEDS ORDERED: LEVOFLOXACIN 500MG PREMIX 100 ML IV SCH (16:00)
[2025-03-07 20:00] VITALS: BP 120/75; PULSE 79; RESP 18; TEMP 36.7; O2SAT 98
[2025-03-07] MEDS: LEVOFLOXACIN 250MG TABLET PO SCH (21:51)
[2025-03-08] VITALS: BP 143/64; PULSE 95; RESP 18; TEMP 36.4; O2SAT 99
[2025-03-08 04:00] VITALS: BP 125/64; PULSE 78; RESP 19; TEMP 37.1; O2SAT 99
[2025-03-08 08:00] VITALS: BP 139/49; PULSE 91; RESP 20; TEMP 36.3; O2SAT 98
[2025-03-08 12:00] VITALS: BP 140/63; PULSE 92; RESP 19; TEMP 36.4; O2SAT 100
[2025-03-08 16:00] VITALS: BP 127/53; PULSE 88; RESP 20; TEMP 36.3; O2SAT 100
[2025-03-08 20:00] VITALS: BP 138/64; PULSE 81; RESP 18; TEMP 36.4; O2SAT 98
[2025-03-09] VITALS: BP 104/52; PULSE 83; RESP 19; TEMP 36.6; O2SAT 99
[2025-03-09 04:00] VITALS: BP 118/40; PULSE 82; RESP 18; TEMP 36.7; O2SAT 99
[2025-03-09 08:00] VITALS: BP 114/51; PULSE 79; RESP 18; TEMP 36.2; O2SAT 97
[2025-03-09 12:00] VITALS: BP 142/67; PULSE 89; RESP 19; TEMP 36.3; O2SAT 97
[2025-03-09 16:00] VITALS: BP 142/71; PULSE 87; RESP 18; TEMP 36.2; O2SAT 97
[2025-03-09 20:00] VITALS: BP 125/55; PULSE 83; RESP 19; TEMP 36.8; O2SAT 99
[2025-03-10] VITALS: PULSE 86; RESP 19; TEMP 36.2; O2SAT 99
[2025-03-10 04:00] VITALS: BP 123/41; PULSE 86; RESP 19; TEMP 36.2; O2SAT 99
[2025-03-10 08:00] VITALS: BP 109/48; PULSE 63; RESP 19; TEMP 36.5; O2SAT 96
[2025-03-10] MEDS: GABAPENTIN 400MG CAPSULE PO SCH (10:58)
[2025-03-10 12:00] VITALS: BP 144/57; PULSE 76; RESP 19; TEMP 36.5; O2SAT 98
[2025-03-10 16:00] VITALS: BP 138/69; PULSE 78; RESP 19; TEMP 36.5; O2SAT 99
[2025-03-10] MEDS ORDERED: NALOXONE HCL 0.4MG/ML VIAL IV PRN (18:30)
[2025-03-10 20:00] VITALS: BP 148/64; PULSE 82; RESP 20; TEMP 36.2; O2SAT 97
[2025-03-10] MEDS: HYDROCODONE/ACETAMINOPHEN 5/325MG TABLET PO PRN (21:38)
[2025-03-11] VITALS: BP 123/56; PULSE 82; RESP 20; TEMP 36.3; O2SAT 95
[2025-03-11 04:00] VITALS: BP 101/56; PULSE 83; RESP 20; TEMP 36.2; O2SAT 96
[2025-03-11 08:00] VITALS: BP 120/59; PULSE 79; RESP 19; TEMP 36.5; O2SAT 96
[2025-03-11] MEDS: GABAPENTIN 400MG CAPSULE PO SCH (09:28)
[2025-03-11] MEDS: GABAPENTIN 100MG CAPSULE PO SCH (09:29)
[2025-03-11 12:00] VITALS: BP 121/48; PULSE 82; RESP 19; TEMP 36.4; O2SAT 97
[2025-03-11 16:00] VITALS: BP 144/67; PULSE 72; RESP 19; TEMP 35.7; O2SAT 98
[2025-03-11 20:00] VITALS: BP 139/67; PULSE 86; RESP 20; TEMP 36.3; O2SAT 95
[2025-03-12] VITALS: BP 127/59; PULSE 79; RESP 20; TEMP 36.1; O2SAT 99
[2025-03-12 04:00] VITALS: BP 142/61; PULSE 74; RESP 20; TEMP 35.9; O2SAT 95
[2025-03-12 08:00] VITALS: BP 142/52; PULSE 74; RESP 19; TEMP 36.7; O2SAT 95
[2025-03-12 12:00] VITALS: BP 125/52; PULSE 70; RESP 18; TEMP 36.6; O2SAT 96
[2025-03-12 16:00] VITALS: BP 151/60; PULSE 67; RESP 18; TEMP 36.6; O2SAT 100
[2025-03-12 20:00] VITALS: BP 131/56; PULSE 73; RESP 20; TEMP 36.3; O2SAT 95
[2025-03-13] VITALS: BP 129/60; PULSE 79; RESP 20; TEMP 35.9; O2SAT 96
[2025-03-13 04:00] VITALS: BP 135/46; PULSE 76; RESP 18; TEMP 36.1; O2SAT 96
[2025-03-13 08:00] VITALS: BP 129/57; PULSE 71; RESP 18; TEMP 36.6; O2SAT 97
[2025-03-13 12:00] VITALS: BP 149/61; PULSE 67; RESP 18; TEMP 36.9; O2SAT 97
[2025-03-13 16:00] VITALS: BP 134/55; PULSE 68; RESP 18; TEMP 36.6; O2SAT 96
[2025-03-13 20:00] VITALS: BP 146/66; PULSE 77; RESP 18; TEMP 36.6; O2SAT 98
[2025-03-14] VITALS: BP 161/69; PULSE 77; RESP 18; TEMP 36.6; O2SAT 99
[2025-03-14 04:00] VITALS: BP 128/66; PULSE 73; RESP 18; TEMP 36.5; O2SAT 97
[2025-03-14 08:00] VITALS: BP 133/86; PULSE 70; RESP 16; TEMP 36.4; O2SAT 99
[2025-03-14 12:00] VITALS: BP 115/61; PULSE 73; RESP 16; TEMP 36.1; O2SAT 96
[2025-03-14 16:00] VITALS: BP 121/60; PULSE 68; RESP 17; TEMP 36.6; O2SAT 98
[2025-03-14 20:00] VITALS: BP 137/61; PULSE 75; RESP 18; TEMP 35.8; O2SAT 100
[2025-03-15] VITALS: BP 125/52; PULSE 65; RESP 18; TEMP 35.9; O2SAT 98
[2025-03-15] MEDS ORDERED: BISACODYL 5MG TABLET PO PRN (13:45)
[2025-03-15] MEDS ORDERED: SENNOSIDES/DOCUSATE SOD 8.6/50MG TABLET PO PRN (13:45)
[2025-03-15 16:00] VITALS: BP 165/85; PULSE 81; RESP 17; TEMP 36.4; O2SAT 98
[2025-03-15 20:00] VITALS: BP 142/64; PULSE 78; RESP 18; TEMP 36.7; O2SAT 97
[2025-03-15] MEDS: ACETAMINOPHEN 650MG/20.3ML UDC PO PRN (21:00)
[2025-03-16] VITALS: BP 123/55; PULSE 83; RESP 18; TEMP 36.8; O2SAT 98
[2025-03-16 04:00] VITALS: BP 122/56; PULSE 67; RESP 18; TEMP 36.6; O2SAT 99
[2025-03-16 08:00] VITALS: BP 140/64; PULSE 77; RESP 17; TEMP 36.4; O2SAT 99
[2025-03-16] MEDS: POLYETHYLENE GLYCOL 3350 (17GM) 1 DOSE PACK PO SCH (09:00)
[2025-03-16] MEDS: HYDROCODONE/ACETAMINOPHEN 5/325MG TABLET PO PRN (13:44)
[2025-03-16] MEDS: NA PHOS,M-B/NA PHOS,DI-BA ENEMA 118ML PR ONE (15:08)
[2025-03-16] MEDS: DOCUSATE SODIUM 100MG CAPSULE PO SCH (20:56)
[2025-03-17] VITALS: BP 117/61; PULSE 77; RESP 17; TEMP 36.4; O2SAT 97
[2025-03-17 04:00] VITALS: BP 130/61; PULSE 72; RESP 18; O2SAT 98
[2025-03-17 08:00] VITALS: BP 150/59; PULSE 64; RESP 16; TEMP 36.1; O2SAT 97
[2025-03-17 08:16] LABS: BASOPHILS % 0.4 % (0.0-2.0); EOSINOPHILS % 2.6 % (0.0-5.0); HEMATOCRIT. 25.4 % (36.0-48.0); HEMOGLOBIN. 8.4 g/dL (12.0-16.0); LYMPHOCYTES % 43.0 % (20.0-50.0); MEAN PLATELET VOLUME 7.7 fl (7.4-10.4); MONOCYTES % 5.8 % (2.0-8.0); NEUTROPHILS % 48.2 % (40.0-76.0); PLATELET 362 x1000/uL (130-400); RED BLOOD CELL COUNT 3.31 mill/uL (4.2-5.4); RED CELL DISTRIBUTION WIDTH 20.3 % (11.6-14.6)
[2025-03-17 08:31] LABS: CREATININE 0.6 mg/dL (0.6-1.0); UREA NITROGEN BLOOD 21 mg/dL (9-23)
[2025-03-17 12:00] VITALS: BP 154/67; PULSE 66; RESP 17; TEMP 36.4; O2SAT 97
[2025-03-17 16:00] VITALS: BP 125/61; PULSE 78; TEMP 36.4
[2025-03-17 20:00] VITALS: BP 136/59; PULSE 68; RESP 18; TEMP 36.2; O2SAT 97
[2025-03-18] VITALS: BP 132/62; PULSE 77; RESP 18; TEMP 36.3; O2SAT 96
[2025-03-18 04:00] VITALS: BP 138/60; PULSE 76; RESP 17; TEMP 36.2; O2SAT 96
[2025-03-18 08:00] VITALS: BP 142/63; PULSE 76; RESP 18; TEMP 36.1; O2SAT 99
[2025-03-18 12:00] VITALS: BP 145/67; PULSE 72; RESP 18; TEMP 36.7; O2SAT 99
[2025-03-18 16:00] VITALS: BP 133/58; PULSE 74; RESP 18; TEMP 35.9; O2SAT 99
[2025-03-18] MEDS: ASPIRIN 81MG TABLET PO SCH (16:48)
[2025-03-18 20:00] VITALS: BP 139/65; PULSE 76; RESP 20; TEMP 36.2; O2SAT 97
[2025-03-19] VITALS (7 sets, daily range): BP systolic 123–138; BP diastolic 50–61; PULSE 65–77; RESP 19–20; TEMP 35.6–36.7; O2SAT 96–100
[2025-03-19] MEDS ORDERED: FURO-152 MT (20:10)
[2025-03-19] MEDS ORDERED: AMLO-905 MT (20:10)
[2025-03-19] MEDS ORDERED: GABA-534 MT (20:10)
[2025-03-19] MEDS ORDERED: FAMO-135 MT (20:10)
[2025-03-19] MEDS ORDERED: CARV3.1242 MT (20:10)
[2025-03-19] MEDS ORDERED: ATOR10TA MT (20:10)
[2025-03-19] MEDS ORDERED: ASPI-1497 MT (20:18)
[2025-03-20] VITALS: BP 111/75; PULSE 83; RESP 20; TEMP 36.3; O2SAT 100
== END 2025-03-19 22:07 | disposition home health service (06) | DRG 689 ==
LOC: ER 11:45 → EDBEDREQTM 15:44 → EDBEDREQ 15:44 → 6EST 17:21 → 7EST 03-13 00:54
PROVIDERS: ADMIT Internal Medicine; ATTEND Internal Medicine
DX: N39.0 Urinary tract infection, site not specified (principal); L89.153 Pressure ulcer of sacral region, stage 3; G81.94 Hemiplegia, unspecified affecting left nondominant side; I11.0 Hypertensive heart disease with heart failure; I50.9 Heart failure, unspecified; E11.9 Type 2 diabetes mellitus without complications; D50.9 Iron deficiency anemia, unspecified; B96.20 Unspecified Escherichia coli [E. coli] as the cause of diseases classified elsewhere; E65 Localized adiposity; E87.6 Hypokalemia; K56.41 Fecal impaction; L30.4 Erythema intertrigo; N27.0 Small kidney, unilateral; Z74.01 Bed confinement status; Z88.0 Allergy status to penicillin; Z88.5 Allergy status to narcotic agent; Z98.84 Bariatric surgery status; Z79.84 Long term (current) use of oral hypoglycemic drugs; Z79.899 Other long term (current) drug therapy
CPT/HCPCS: 36415; 74018; 74177; 76700; 80048; 80053; 80076; 80305; 81003; 82550; 82553; 82607; 82728; 82746; 82962; 83036; 83540; 83550; 83735; 84145; 84484; 85025; 87077; 87186; 93005; 93970; 97110; 97162; 97530; 97535; 99285; A4606; J1171; J1650; J1815; J1956; J2405; J2470; J7070; Q9967

== ENCOUNTER 2025-04-01 20:07 | Inpatient (IN) | payer SELFPAY ==
[~2025-04-01] VITALS: Ht 175.3 cm; Wt 116.1 kg
[~2025-04-01 20:07] MED LIST changes: +AMLO-905 MT; +ASPI-1497 MT; +ATOR10TA MT; +CARV3.1242 MT; -CEFD300C3 MT; +FURO-152 MT; +GABA-534 MT; -METR-167 MT
[2025-04-01 20:10] VITALS: O2SAT 99
[2025-04-01 21:28] LABS: BASOPHILS % 0.5 % (0.0-2.0); EOSINOPHILS % 2.2 % (0.0-5.0); HEMATOCRIT. 33.5 % (36.0-48.0); HEMOGLOBIN. 10.4 g/dL (12.0-16.0); LYMPHOCYTES % 23.5 % (20.0-50.0); MEAN PLATELET VOLUME 9.0 fl (7.4-10.4); MONOCYTES % 4.8 % (2.0-8.0); NEUTROPHILS % 69.0 % (40.0-76.0); PLATELET 403 x1000/uL (130-400); RED BLOOD CELL COUNT 4.33 mill/uL (4.2-5.4); RED CELL DISTRIBUTION WIDTH 20.6 % (11.6-14.6)
[2025-04-01 21:42] LABS: CREATININE 0.6 mg/dL (0.6-1.0); UREA NITROGEN BLOOD 41 mg/dL (9-23)
[2025-04-01 21:43] LABS: PROTEIN TOTAL 7.5 g/dL (6.0-8.3)
[2025-04-01 21:44] LABS: ASPARTATE AMINOTRANSFERASE 10 IU/L (<34); BILIRUBIN DIRECT < 0.1 mg/dL (<=3.0)
[2025-04-01 21:45] LABS: BILIRUBIN TOTAL < 0.2 mg/dL (0.1-1.0)
[2025-04-01] MEDS: IOHEXOL-300 100 ML BOTTLE ONE (23:46)
[2025-04-01] MEDS: LACTULOSE ENEMA 1,000ML BOTTLE PR STA (23:59)
[2025-04-02 00:49] LABS: INR 0.9
[2025-04-02 03:31] LABS: CLARITY URINE CLEAR (CLEAR); COLOR URINE YELLOW (YELLOW); GLUCOSE URINE NEGATIVE (NEGATIVE); KETONES URINE TRACE (NEGATIVE); LEUKOCYTE ESTERASE URINE 2+ (NEGATIVE); NITRITE URINE POSITIVE (NEGATIVE); OCCULT BLOOD URINE TRACE (NEGATIVE); PH URINE 8.0 (4.5-8.0); PROTEIN URINE 1+ (NEGATIVE); SPECIFIC GRAVITY URINE 1.020 (1.005-1.030); UROBILINOGEN URINE 0.2 E.U./dL (0.2-1.0)
[2025-04-02 03:34] LABS: BACTERIA URINE 1+; SQUAMOUS EPITHELIAL CELL URINE FEW /lpf (RARE/1+)
[2025-04-02 03:35] LABS: CALCIUM OXALATE CRYSTALS URINE 1+ /lpf
[2025-04-02 03:37] LABS: *AMPHETAMINES SCREEN URINE NEGATIVE (NEGATIVE); *BARBITURATES SCREEN URINE NEGATIVE (NEGATIVE); *BENZODIAZEPINES SCREEN URINE NEGATIVE (NEGATIVE); *COCAINE SCREEN URINE NEGATIVE (NEGATIVE); CANNABINOID URINE SCREEN NEGATIVE (NEGATIVE); ECSTASY MDMA SCREEN URINE NEGATIVE (NEGATIVE); METHADONE URINE SCREEN NEGATIVE (NEGATIVE); OPIATES URINE SCREEN PRESUMPTIVE POSITIVE (NEGATIVE); PHENCYCLIDINE URINE SCREEN NEGATIVE (NEGATIVE)
[2025-04-02] MEDS ORDERED: DEXTROSE 50% WATER 50ML SYRINGE IV PRN (05:45)
[2025-04-02] MEDS: BLOOD SUGAR DIAGNOSTIC STRIP TEST SCH (06:40)
[2025-04-02 06:47] VITALS: BP 140/67; PULSE 94; RESP 18; TEMP 36.3624
[2025-04-02] MEDS: INSULIN LISPRO 100 UNITS/ML SUBCUT SCH (07:10)
[2025-04-02 08:00] VITALS: BP 124/59; PULSE 85; RESP 18; TEMP 36.3; O2SAT 95
[2025-04-02 12:00] VITALS: BP 113/57; PULSE 84; RESP 17; TEMP 36.6; O2SAT 95
[2025-04-02 16:00] VITALS: BP 120/55; PULSE 82; RESP 17; TEMP 36.4; O2SAT 96
[2025-04-02 17:52] LABS: BASOPHILS % 0.4 % (0.0-2.0); EOSINOPHILS % 2.5 % (0.0-5.0); HEMATOCRIT. 26.4 % (36.0-48.0); HEMOGLOBIN. 8.4 g/dL (12.0-16.0); LYMPHOCYTES % 26.5 % (20.0-50.0); MEAN PLATELET VOLUME 8.9 fl (7.4-10.4); MONOCYTES % 8.1 % (2.0-8.0); NEUTROPHILS % 62.5 % (40.0-76.0); PLATELET 331 x1000/uL (130-400); RED BLOOD CELL COUNT 3.43 mill/uL (4.2-5.4); RED CELL DISTRIBUTION WIDTH 19.8 % (11.6-14.6)
[2025-04-02 18:06] LABS: CREATININE 0.7 mg/dL (0.6-1.0)
[2025-04-02 18:07] LABS: UREA NITROGEN BLOOD 45 mg/dL (9-23)
[2025-04-02 20:00] VITALS: BP 104/82; PULSE 80; RESP 18; TEMP 36.4; O2SAT 98
[2025-04-02] MEDS: SENNOSIDES/DOCUSATE SOD 8.6/50MG TABLET PO PRN (22:26)
[2025-04-03] VITALS: BP 110/71; PULSE 78; RESP 17; TEMP 36.7; O2SAT 98
[2025-04-03 04:00] VITALS: BP 110/74; PULSE 79; RESP 17; TEMP 36.8; O2SAT 98
[2025-04-03] MEDS: SODIUM CHLORIDE 0.9% 100 ML IV ONE (07:05)
[2025-04-03 08:00] VITALS: BP 117/49; PULSE 73; RESP 18; TEMP 36.6; O2SAT 98
[2025-04-03] MEDS: LACTULOSE 20G/30ML UDC PO SCH (08:54)
[2025-04-03] MEDS: BISACODYL 10MG SUPP PR NR (10:53)
[2025-04-03 12:00] VITALS: BP 136/59; PULSE 71; RESP 18; TEMP 37; O2SAT 96
[2025-04-03] MEDS ORDERED: FAMOTIDINE(NEO) 1MG/ML SUSP PO SCH (13:15)
[2025-04-03] MEDS ORDERED: NALOXONE HCL 0.4MG/ML VIAL IV PRN (13:15)
[2025-04-03] MEDS: ASPIRIN 81MG EC TABLET PO SCH (13:36)
[2025-04-03] MEDS: CARVEDILOL 3.125 MG TABLET PO SCH (13:37)
[2025-04-03 16:00] VITALS: BP 124/61; PULSE 73; RESP 18; TEMP 36.5; O2SAT 95
[2025-04-03] MEDS: HYDROCODONE/ACETAMINOPHEN 5/325MG TABLET PO PRN (16:21)
[2025-04-03 20:00] VITALS: BP 135/58; PULSE 71; RESP 18; TEMP 36.4; O2SAT 97
[2025-04-03] MEDS: FAMOTIDINE 20MG TABLET PO SCH (21:30)
[2025-04-03] MEDS: ATORVASTATIN CALCIUM 10MG TABLET PO SCH (21:30)
[2025-04-04] VITALS: BP 118/49; PULSE 75; RESP 19; TEMP 36.4; O2SAT 98
[2025-04-04 04:00] VITALS: BP 132/53; PULSE 78; RESP 18; TEMP 36.7; O2SAT 97
[2025-04-04 08:00] VITALS: BP 125/65; PULSE 75; RESP 18; TEMP 35.9; O2SAT 100
[2025-04-04 12:00] VITALS: BP 131/63; PULSE 77; RESP 19; TEMP 36.2; O2SAT 98
[2025-04-04] MEDS: POLYETHYLENE GLYCOL 3350 (17GM) 1 DOSE PACK PO SCH (13:44)
[2025-04-04] MEDS: DOCUSATE SODIUM 100MG CAPSULE PO SCH (13:44)
[2025-04-04 16:00] VITALS: BP 124/62; PULSE 71; RESP 18; TEMP 36.8; O2SAT 96
[2025-04-04] MEDS ORDERED: NALOXONE HCL 0.4MG/ML VIAL IV PRN (16:00)
[2025-04-04 20:00] VITALS: BP 143/64; PULSE 73; RESP 18; TEMP 37.1; O2SAT 97
[2025-04-04] MEDS: SENNOSIDES 8.6MG TABLET PO SCH (21:52)
[2025-04-04] MEDS: TRAMADOL 50MG TABLET PO PRN (21:54)
[2025-04-05] VITALS: BP 135/43; PULSE 79; RESP 19; TEMP 36.4; O2SAT 98
[2025-04-05 04:00] VITALS: BP 137/49; PULSE 77; RESP 18; TEMP 36.7; O2SAT 95
[2025-04-05 08:00] VITALS: BP 156/60; PULSE 70; RESP 18; TEMP 36.3; O2SAT 97
[2025-04-05] MEDS: PANTOPRAZOLE SODIUM 40 MG/VIAL IV SCH (08:55)
[2025-04-05] MEDS ORDERED: PANT40TA51 MT (10:00)
[2025-04-05] MEDS ORDERED: POLY119P2 MT (10:00)
[2025-04-05] MEDS ORDERED: SENN-371 MT (10:00)
[2025-04-05] MEDS ORDERED: DOCU-138 MT (10:00)
[2025-04-05 12:15] VITALS: RESP 16; O2SAT 95
[2025-04-05 12:30] LABS: BASOPHILS % 0.4 % (0.0-2.0); EOSINOPHILS % 4.3 % (0.0-5.0); HEMATOCRIT. 25.3 % (36.0-48.0); HEMOGLOBIN. 7.9 g/dL (12.0-16.0); LYMPHOCYTES % 35.0 % (20.0-50.0); MEAN PLATELET VOLUME 9.2 fl (7.4-10.4); MONOCYTES % 8.9 % (2.0-8.0); NEUTROPHILS % 51.4 % (40.0-76.0); PLATELET 332 x1000/uL (130-400); RED BLOOD CELL COUNT 3.27 mill/uL (4.2-5.4); RED CELL DISTRIBUTION WIDTH 19.8 % (11.6-14.6)
[2025-04-05 12:42] LABS: CREATININE 0.7 mg/dL (0.6-1.0)
[2025-04-05 12:43] LABS: UREA NITROGEN BLOOD 28 mg/dL (9-23)
[2025-04-05 12:49] LABS: FOLIC ACID (FOLATE) SERUM 11.46 ng/mL (>5.38); VITAMIN B12 SERUM 1766 pg/mL (211-911)
[2025-04-05 16:00] VITALS: BP 160/65; PULSE 70; RESP 16; TEMP 36.5; O2SAT 98
[2025-04-05 19:04] LABS: GLUCOSE URINE NEGATIVE (NEGATIVE); KETONES URINE NEGATIVE (NEGATIVE); LEUKOCYTE ESTERASE URINE 3+ (NEGATIVE); NITRITE URINE NEGATIVE (NEGATIVE); OCCULT BLOOD URINE 2+ (NEGATIVE); PH URINE >=9.0 (4.5-8.0); PROTEIN URINE 3+ (NEGATIVE); SPECIFIC GRAVITY URINE 1.011 (1.005-1.030); UROBILINOGEN URINE 0.2 E.U./dL (0.2-1.0)
[2025-04-05 20:00] VITALS: PULSE 98; RESP 19; TEMP 36.5; O2SAT 100
[2025-04-05 20:08] LABS: CLARITY URINE HAZY (CLEAR); COLOR URINE STRAW (YELLOW)
[2025-04-05 20:10] LABS: AMORPHOUS SEDIMENT URINE 2+ /lpf; BACTERIA URINE 2+; RBC URINE 0-2 /hpf (0-2); SQUAMOUS EPITHELIAL CELL URINE 2+ /lpf (RARE/1+); TRIPLE PHOSPHATE CRYSTAL URINE 2+ /lpf
[2025-04-05 20:11] LABS: MUCUS URINE 1+ /lpf (< = 2+)
[2025-04-06] VITALS: BP 139/57; PULSE 74; RESP 18; TEMP 36.2; O2SAT 98
[2025-04-06] MEDS: CEFTRIAXONE 1GM/50ML 50 ML IV SCH (03:27)
[2025-04-06 04:00] VITALS: BP_SYST 137; BP_SYST 37; BP_DIAS 57; BP_DIAS 60; PULSE 70; RESP 17; TEMP 36.1; O2SAT 98
[2025-04-06] MEDS: ENOXAPARIN 30MG/0.3ML SYR SUBCUT SCH (06:38)
[2025-04-06 08:00] VITALS: BP 134/81; RESP 14; TEMP 36.2; O2SAT 98
[2025-04-06 12:00] VITALS: BP 152/69; PULSE 71; RESP 15; TEMP 36.1; O2SAT 97
[2025-04-06] MEDS ORDERED: CEFP100T8 MT (15:37)
[2025-04-06] MEDS ORDERED: FERR325T6 MT (15:37)
[2025-04-06 16:12] VITALS: BP 129/61; PULSE 71; RESP 14; TEMP 36.6; O2SAT 97
[2025-04-06 20:00] VITALS: BP 142/62; PULSE 77; RESP 19; TEMP 36.7; O2SAT 97
[2025-04-06] MEDS: HYDROCODONE/ACETAMINOPHEN 5/325MG TABLET PO PRN (23:33)
[2025-04-07] VITALS: BP 147/66; PULSE 79; RESP 20; TEMP 37; O2SAT 97
[2025-04-07 04:00] VITALS: RESP 16
[2025-04-07 08:00] VITALS: BP 137/61; PULSE 77; RESP 16; TEMP 36.4; O2SAT 98
[2025-04-07 12:00] VITALS: BP 156/67; PULSE 69; RESP 16; TEMP 36.6; O2SAT 98
[2025-04-07 16:00] VITALS: BP 163/72; PULSE 79; RESP 16; TEMP 36.8; O2SAT 96
[2025-04-07 20:00] VITALS: BP 131/62; PULSE 75; RESP 17; TEMP 36.6; O2SAT 97
[2025-04-08] VITALS: BP 135/61; PULSE 76; RESP 16; TEMP 36.5; O2SAT 97
[2025-04-08 04:00] VITALS: BP 144/66; PULSE 73; RESP 18; TEMP 36.7; O2SAT 99
[2025-04-08 08:00] VITALS: PULSE 71; RESP 18; TEMP 35.9; O2SAT 97
[2025-04-08 12:00] VITALS: BP 151/76; PULSE 75; RESP 18; TEMP 36.5; O2SAT 97
[2025-04-08 16:00] VITALS: BP 144/58; PULSE 72; RESP 18; TEMP 36; O2SAT 95
[2025-04-08 20:00] VITALS: BP 162/70; PULSE 79; RESP 18; TEMP 36.5; O2SAT 97
[2025-04-09] VITALS: BP 143/61; PULSE 75; RESP 18; TEMP 36.4; O2SAT 95
[2025-04-09 04:00] VITALS: BP 139/62; PULSE 74; RESP 18; TEMP 36.6; O2SAT 99
[2025-04-09 08:00] VITALS: BP_SYST 127; BP_DIAS 5; BP_DIAS 53; PULSE 69; RESP 18; TEMP 36.3; O2SAT 96; O2SAT 97
[2025-04-09 12:00] VITALS: BP 165/62; PULSE 68; RESP 20; TEMP 36.7; O2SAT 98
[2025-04-09 13:34] VITALS: BP 127/86; PULSE 98; RESP 20; TEMP 97.7
[2025-04-09] MEDS: CLONIDINE 0.1MG TABLET PO PRN (13:55)
== END 2025-04-09 16:29 | disposition home or self-care (01) | DRG 254 ==
LOC: ER 20:07 → 7EST 04-02 00:45 → EDBEDREQDT 04-02 00:48 → EDBEDREQTM 04-02 00:48 → EDBEDREQ 04-02 00:48 → ENRESERV 04-02 02:46
PROVIDERS: ADMIT Family Medicine Adult Medicine; ATTEND Family Medicine Adult Medicine
DX: K59.03 Drug induced constipation (principal); I11.0 Hypertensive heart disease with heart failure; I69.354 Hemiplegia and hemiparesis following cerebral infarction affecting left non-dominant side; K21.9 Gastro-esophageal reflux disease without esophagitis; D50.9 Iron deficiency anemia, unspecified; E11.9 Type 2 diabetes mellitus without complications; N39.0 Urinary tract infection, site not specified; T40.2X5A Adverse effect of other opioids, initial encounter; K80.20 Calculus of gallbladder without cholecystitis without obstruction; M54.9 Dorsalgia, unspecified; Z74.01 Bed confinement status; Z98.84 Bariatric surgery status; Z79.82 Long term (current) use of aspirin; Z88.0 Allergy status to penicillin; Z79.899 Other long term (current) drug therapy; Z88.5 Allergy status to narcotic agent
CPT/HCPCS: 36415; 74018; 74177; 80048; 80076; 80305; 81003; 82607; 82728; 82746; 82962; 83036; 83540; 83550; 85025; 85044; 86850; 86900; 99291; J0696; J1650; J2470; Q9967